=== PATIENT | female | born 1975 | race Caucasian/White ===

== ENCOUNTER 2020-05-20 11:09 | Outpatient (CLI) | payer OTHER, SELFPAY ==
--- NOTE | ~2020-05-20 | XR_ITS ---
EXAMINATION: XR chest 2V 05/20/2020 11:31 INDICATION: Cough PROCEDURE: 2 view chest COMPARISON: No prior studies for comparison. FINDINGS: The lungs are clear. The cardiomediastinal silhouette is within normal limits. There are no pleural effusions. There is no pneumothorax suspected. IMPRESSION: 1: NO ACUTE CARDIOPULMONARY DISEASE. Reviewed, dictated and finalized at location B.
[2020-05-20 11:22] LABS: Basophils Absolute Auto 0.05 K/mm3 (0.00-0.10); Basophils Percent Auto 0.4 % (0.0-1.0); Eosinophils Absolute Auto 0.25 K/mm3 (0.02-0.50); Eosinophils Percent Auto 2.2 % (1.0-6.0); Hematocrit 34.6 % (35.0-49.0); Hemoglobin 11.4 g/dL (12.0-15.0); Immature Granulocyte Absolute 0.05 K/mm3 (0.00-0.00); Immature Granulocyte Percent A 0.4 % (0.0-0.0); Lymphocytes Absolute Auto 2.76 K/mm3 (1.10-4.50); Lymphocytes Percent Auto 24.2 % (18.0-42.0); Mean Corpuscular HGB Conc 32.9 g/dL (32.0-36.0); Mean Corpuscular Hemoglobin 31.1 pg (27.0-31.0); Mean Corpuscular Volume 94.5 fL (78.0-102.0); Mean Platelet Volume 9.4 fl (9.2-11.8); Monocytes Absolute Auto 1.07 K/mm3 (0.10-0.90); Monocytes Percent Auto 9.4 % (2.0-11.0); Neutrophils Absolute Auto 7.2 K/mm3 (1.7-7.2); Neutrophils Percent Auto 63.4 % (50.0-70.0); Platelet Count Result 328 K/mm3 (150-420); Red Blood Count 3.66 M/mm3 (4.20-5.40); Red Cell Distribution Width 12.7 % (11.6-14.4); White Blood Count 11.4 K/mm3 (4.8-10.8)
[2020-05-20 11:24] LABS: Add Urine Microscopic? NO; Appearance Urine Clear (Clear); Bilirubin Urine Negative (Negative); Blood Urine Negative (Negative); Color Urine Yellow (Yellow); Glucose Urine UA Negative (Negative); Ketones Urine Negative (Negative); Leukocyte Esterase Ur Negative (Negative); Nitrate Urine Negative (Negative); Protein Urine Negative (Negative); Urobilinogen Urine 0.2 mg/dL (0.2-1.0)
[2020-05-20 12:48] LABS: Alanine Aminotransferase 27 U/L (14-59); Albumin Level 3.9 g/dL (3.4-5.0); Alkaline Phosphatase 50 U/L (46-116); Anion Gap 9 mmol/L (8-16); Aspartate Amino Transferase 17 U/L (15-37); Bilirubin,Total 0.7 mg/dL (0.00-1.00); Blood Urea Nitrogen 8 mg/dL (7-18); Calcium 8.8 mg/dL (8.5-10.1); Carbon Dioxide 28 mmol/L (21-32); Chloride 103 mmol/L (98-108); Cholesterol 168 mg/dL (0-200); Estimated Glomerular Filt Rate > 60; Glucose 78 mg/dL (70-99); HDL Direct 61 mg/dL (40-60); LDL Cholesterol Calculated 95 mg/dL (<130); Osmolality Calculated 287 mOsm/kg (285-295); Potassium 4.3 mmol/L (3.5-5.1); Sodium 140 mmol/L (136-145); Thyroid Stimulating Hormone 2.31 uIU/mL (0.36-3.74); Total Protein 6.7 g/dL (6.4-8.2); Triglycerides 58 mg/dL (0-150)
== END 2020-05-20 11:10 | disposition home or self-care (01) ==
PROVIDERS: PCP Internal Medicine; Visit Provider Internal Medicine
DX: Z00.00 Encounter for general adult medical examination without abnormal findings (principal); F17.200 Nicotine dependence, unspecified, uncomplicated
CPT/HCPCS: 36415; 71046; 80053; 80061; 81003; 84443; 85025

== ENCOUNTER 2020-07-26 16:30 | Emergency (ER) | payer OTHER, SELFPAY ==
--- NOTE | ~2020-07-26 | CT_ITS ---
EXAMINATION: CT abdomen pelvis wo con DATE: 07/26/2020 18:57 INDICATION: Right flank pain TECHNIQUE: Computed tomography (CT) of the abdomen and pelvis was performed without intravenous contr ast. The dose-length product was 258.14 mGy-cm. Automated exposure control and iterative reconstructi on technique were employed. COMPARISON: None. FINDINGS: Lung bases are unremarkable. Heart size normal. No significant pleural or pericardial effus ion. There is an 11 mm hypodense lesion of the right hepatic lobe, most likely benign cysts. No significan t vascular abnormality. There is right perinephric edema with mild hydronephrosis. The ureter is not well visualized distally . Cannot exclude a ureteral stone. There are bilateral pelvic calcifications. Consider correlation wi th CT urogram. The spleen, pancreas, adrenal glands and left kidney are unremarkable. Nonobstructive bowel gas patte rn. No free air or free fluid. IMPRESSION: 1. Moderate right perinephric edema with mild hydronephrosis. Consider pyelonephritis and sequela of distal ureteral stone, although the mid and distal aspect of the ureter are not well visualized. Cons ider correlation with CT urogram. Reviewed, dictated and finalized at location A. FILLING ROOM SWEEPER IMPRESSION: 1. Moderate right perinephric edema with mild hydronephrosis. Consider pyelonep hritis and sequela of distal ureteral stone, although the mid and distal aspect of the ureter are not well visualized. Consider correlation with CT urogram.
[2020-07-26 16:45] VITALS: BP 111/81; PULSE 102; RESP 17; TEMP 36; O2SAT 97
[2020-07-26] MEDS: ONDANSETRON HCL ODT 4 MG TABLET PO (18:20)
[2020-07-26] MEDS: KETOROLAC (*BKC) 60 MG/2 ML VIAL IM (18:22)
[2020-07-26 18:48] LABS: Add Urine Microscopic? YES; Appearance Urine Cloudy (Clear); Bilirubin Urine Negative (Negative); Blood Urine 2+ (Negative); Color Urine Amber (Yellow); Glucose Urine UA Negative (Negative); Hematocrit 39.1 % (35.0-49.0); Ketones Urine Negative (Negative); Leukocyte Esterase Ur 1+ (Negative); Mean Corpuscular HGB Conc 33.2 g/dL (32.0-36.0); Mean Corpuscular Hemoglobin 30.8 pg (27.0-31.0); Mean Corpuscular Volume 92.7 fL (78.0-102.0); Mean Platelet Volume 9.7 fl (9.2-11.8); Nitrate Urine Positive (Negative); Platelet Count Result 302 K/mm3 (150-420); Protein Urine 1+ (Negative); Red Blood Count 4.22 M/mm3 (4.20-5.40); Red Cell Distribution Width 11.8 % (11.6-14.4); Specific Grav Ur >= 1.030 (1.010-1.020); Urobilinogen Urine 0.2 mg/dL (0.2-1.0); pH Urine 5.5 (5.0-8.0)
[2020-07-26 18:49] LABS: White Blood Count 20.1 K/mm3 (4.8-10.8)
[2020-07-26 18:58] LABS: Bacteria Urine 4+ /hpf; Squamous Epithelial Cell Urine Many /hpf (Few); WBC Urine >75 /hpf (0-3)
[2020-07-26 19:03] LABS: Alanine Aminotransferase 16 U/L (14-59); Albumin Level 3.7 g/dL (3.4-5.0); Alkaline Phosphatase 73 U/L (46-116); Anion Gap 7 mmol/L (8-16); Aspartate Amino Transferase 12 U/L (15-37); Bilirubin,Total 0.9 mg/dL (0.00-1.00); Blood Urea Nitrogen 12 mg/dL (7-18); Calcium 9.1 mg/dL (8.5-10.1); Carbon Dioxide 26 mmol/L (21-32); Chloride 96 mmol/L (98-108); Estimated Glomerular Filt Rate > 60; Glucose 112 mg/dL (70-99); Osmolality Calculated 268 mOsm/kg (285-295); Potassium 3.7 mmol/L (3.5-5.1); Sodium 129 mmol/L (136-145); Total Protein 8.2 g/dL (6.4-8.2)
[2020-07-26 19:08] LABS: Lactic Acid Reflex 0.8 mmol/L (0.4-2.0)
[2020-07-26 19:27] LABS: Band Neutrophils Percent 0 % (0-6); Eosinophils Percent Manual 1 % (1-6); Lymphocytes Percent Manual 6 % (18-44); Metamyelocytes Percent 2 %; Monocytes Percent Manual 8 % (3-9); Neutrophils Absolute Manual 16.68 K/mm3 (1.7-7.2); Neutrophils Percent Manual 83 % (46-73); Platelet Estimate Adequate (Adequate); Total Cells Counted 100
[2020-07-26] MEDS: cefTRIAXone 1 GM VIAL IM (19:44)
--- NOTE | 2020-07-26 20:14 | ED.GENADULT ---
HPI - General Adult General Source: patient and family Mode of arrival: ambulatory Limitations: no limitations History of Present Illness HPI narrative: Patient comes in with right flank pain that started yesterday, is moderately severe, ongoing, not relieved by measures taken at home, and not known to be related to anything in particular. Severity: severe Pain Consistency: colicky Relieving factors: none Exacerbating factors: none Associated symptoms: denies other symptoms Treatments prior to arrival: NSAID Related Data Home Medications Medication Instructions Recorded Confirmed No Home Medications 07/26/20 07/26/20 Allergies Allergy/AdvReac Type Severity Reaction Status Date / Time No Known Allergies Allergy Unknown Unverified 10/18/09 09:04 Review of Systems Constitutional: Constitutional: Reports no additional constitutional complaints Eyes: Eyes: Reports no additional eye complaints ENT: Reports system reviewed and no additional complaints, except as documented Cardiovascular: Cardiovascular: Reports no additional cardiovascular complaints Respiratory: Respiratory: Reports no additional respiratory complaints Gastrointestinal: Comments: episodes of nausea Genitourinary: Genitourinary: Reports no additional female genitourinary complaints Musculoskeletal: Musculoskeletal: Reports no additional musculoskeletal complaints Integumentary/Breasts: Skin/Breast: Reports system reviewed and no additional complaints, except as docu Neurologic: Reports system reviewed and no additional complaints, except as documented Psychiatric: Psychiatric: Reports no additional psychiatric complaints Endocrine: Endocrine: Reports no additional endocrine complaints Hematologic/Lymphatic: Hematologic/Lymphatic: Reports no additional hematologic/lymphatic complaints Allergic/Immunologic: Allergic/Immunologic: Reports no additional allergic/immunologic complaints [facility] Past Medical History Medical History Nausea & vomiting Surgical History Surgical History No significant past surgical history Family History Family History Father Hyperlipidemia Social History Social History (Updated 07/27/20 @ 05:38 by Donte Ponce MD) Smoking status: Current every day smoker Tobacco type: cigarettes Exam Const: General: ill appearing Other: she is nauseated and attempting to vomit HENMT: Head: normal to inspection Ears: external ears normal General nose exam: Normal nares present Eyes: Conjunctivae: conjunctivae normal Neck: Neck: normal visual inspection and no lymphadenopathy Chest: Chest palpation & inspection: normal inspection of the chest Resp: Effort & Inspection: normal respiratory effort Auscultation: clear to auscultation bilaterally Cardio: Rate: regular rate Rhythm: regular rhythm GI: GI Palp: Yes Soft to palpation Auscultation: normal bowel sounds Other: nontender : General: Yes CVA tenderness (on right) Skin: General skin exam: normal color Neuro: General: patient oriented x3 and moves all extremities Extrem: General: normal to inspection Psych: Appearance: grossly normal Mental Status: mental status grossly normal Thought content: Yes Normal thought content present Course Course Emergency Course: CT of abdomen and labs were reviewed due to her persistent emesis, and some mild abdominal discomfort. She was medicated with zofran, which helped. Her son came in to get her. I reviewed with her she has a UTI, and a kidney stone. She was given ceftriaxone and levaquin. I stressed the importance to return if she feels worse at home. A script for an ultrasound as a outpatient was written. She was instructed to follow up with her family doctor to review urine culture, and a urologist because she will need help passing the stone.
[2020-07-26] MEDS: TAMSULOSIN HCL 0.4 MG CAPSULE PO (20:17)
--- NOTE | 2020-07-26 20:22 | PHAR ---
LEVAQUIN 500 MG GIVEN PO - UNABLE TO CHART IN MAR
[2020-07-26 20:45] VITALS: BP 101/69
== END 2020-07-26 20:47 | disposition home or self-care (01) ==
PROVIDERS: Emergency Provider Emergency Medicine; PCP Internal Medicine
DX: N39.0 Urinary tract infection, site not specified (principal); N20.0 Calculus of kidney
CPT/HCPCS: 36415; 74176; 80053; 81001; 83605; 85025; 87077; 87086; 87088; 87186; 96372; 99283; 99284; A9270; J0696; J1885

== ENCOUNTER 2020-07-30 10:25 | Outpatient (CLI) | payer OTHER, SELFPAY | END 2020-07-30 10:26 | disposition home or self-care (01) | LOC: CHSIMG 10:26 | PROVIDERS: PCP Internal Medicine; Visit Provider Emergency Medicine | DX: Z53.8 Procedure and treatment not carried out for other reasons (principal) | CPT/HCPCS: 99199 ==

== ENCOUNTER 2020-08-07 13:26 | Outpatient (CLI) | payer OTHER, SELFPAY ==
--- NOTE | ~2020-08-07 | CT_ITS ---
EXAMINATION: CT abdomen pelvis wo con DATE: 08/07/2020 13:52 INDICATION: Right flank pain, hydronephrosis follow-up TECHNIQUE: Computed tomography (CT) of the abdomen and pelvis was performed without intravenous contr ast. Automated exposure control and iterative reconstruction technique were employed. Exam dose: 174 .31 mGy-cm total exam DLP. COMPARISON: 07/26/[address] abdomen pelvis FINDINGS: The lung bases are clear. Normal heart size. No pericardial or pleural effusion. 11 mm hypoattenuating lesion of the right hepatic lobe, likely a cyst. The liver, gallbladder, bile d ucts, spleen, pancreas and pancreatic duct as well as adrenal glands are unremarkable. No renal mass lesion or urinary tract calculus or hydroureteronephrosis is evident. Interval resoluti on of mild right perinephric fluid since 07/26/2020. The urinary bladder is relatively evacuated. Uterus and adnexal areas are unremarkable. Normal caliber of the abdominal aorta. No intraperitoneal or retroperitoneal or pelvic mass lesion or adenopathy or ascites. Normal appendix. No bowel obstruction, bowel wall thickening, pneumatosis or intraperitoneal free air . Minimal retrolisthesis at L3-4. No suspicious osteolytic or osteoblastic lesions. IMPRESSION: Resolution of mild perinephric fluid since 07/26/2020 No urinary tract calculus or hydroureteronephrosis Probable 11 mm hepatic cyst Reviewed, dictated and finalized at Location A. Reviewed, dictated and finalized at location B. ET RISK ANALYST
[2020-08-07 13:44] LABS: Basophils Absolute Auto 0.03 K/mm3 (0.00-0.10); Basophils Percent Auto 0.3 % (0.0-1.0); Eosinophils Absolute Auto 0.21 K/mm3 (0.02-0.50); Eosinophils Percent Auto 1.8 % (1.0-6.0); Hematocrit 36.7 % (35.0-49.0); Hemoglobin 12.1 g/dL (12.0-15.0); Immature Granulocyte Absolute 0.09 K/mm3 (0.00-0.00); Immature Granulocyte Percent A 0.8 % (0.0-0.0); Lymphocytes Absolute Auto 1.58 K/mm3 (1.10-4.50); Lymphocytes Percent Auto 13.5 % (18.0-42.0); Mean Corpuscular Hemoglobin 30.5 pg (27.0-31.0); Mean Corpuscular Volume 92.4 fL (78.0-102.0); Mean Platelet Volume 8.9 fl (9.2-11.8); Monocytes Absolute Auto 0.85 K/mm3 (0.10-0.90); Monocytes Percent Auto 7.3 % (2.0-11.0); Neutrophils Absolute Auto 8.9 K/mm3 (1.7-7.2); Neutrophils Percent Auto 76.3 % (50.0-70.0); Platelet Count Result 420 K/mm3 (150-420); Red Blood Count 3.97 M/mm3 (4.20-5.40); White Blood Count 11.7 K/mm3 (4.8-10.8)
[2020-08-07 14:04] LABS: Add Urine Microscopic? NO; Appearance Urine Clear (Clear); Bilirubin Urine Negative (Negative); Blood Urine Negative (Negative); Color Urine Yellow (Yellow); Glucose Urine UA Negative (Negative); Ketones Urine Negative (Negative); Leukocyte Esterase Ur Negative (Negative); Nitrate Urine Negative (Negative); Protein Urine Negative (Negative); Specific Grav Ur >= 1.030 (1.010-1.020); Urobilinogen Urine 0.2 mg/dL (0.2-1.0)
[2020-08-07 14:27] LABS: Alanine Aminotransferase 17 U/L (14-59); Albumin Level 3.8 g/dL (3.4-5.0); Alkaline Phosphatase 61 U/L (46-116); Anion Gap 7 mmol/L (8-16); Aspartate Amino Transferase < 10 U/L (15-37); Bilirubin,Total 0.2 mg/dL (0.00-1.00); Blood Urea Nitrogen 11 mg/dL (7-18); Calcium 9.4 mg/dL (8.5-10.1); Carbon Dioxide 29 mmol/L (21-32); Chloride 101 mmol/L (98-108); Estimated Glomerular Filt Rate > 60; Glucose 85 mg/dL (70-99); Osmolality Calculated 282 mOsm/kg (285-295); Potassium 4.3 mmol/L (3.5-5.1); Sodium 137 mmol/L (136-145); Total Protein 7.1 g/dL (6.4-8.2)
== END 2020-08-07 13:27 | disposition home or self-care (01) ==
LOC: CHSLAB 13:30
PROVIDERS: PCP Internal Medicine; Visit Provider Internal Medicine
DX: N13.30 Unspecified hydronephrosis (principal); N12 Tubulo-interstitial nephritis, not specified as acute or chronic
CPT/HCPCS: 36415; 74176; 80053; 81003; 85025; 87086

== ENCOUNTER 2021-04-11 11:51 | Outpatient (CLI) | payer OTHER, SELFPAY ==
--- NOTE | ~2021-04-11 | XR_ITS ---
EXAMINATION: XR lumbar spine 2-3V DATE: 04/11/2021 12:18 INDICATION: Low back pain TECHNIQUE: Anteroposterior and lateral views of the lumbar spine, and cone-down lateral view of the l umbosacral junction were obtained. COMPARISON: CT, 08/07/2020 FINDINGS: There is no fracture. There are 2 mm of unchanged retrolisthesis of L3 on L4. The vertebral body heights are maintained. There is mild loss of intervertebral disc space height throughout the l umbar spine. Small degenerative osteophytes project from the anterior endplates of multiple vertebral bodies. IMPRESSION: 1. Mild lumbar spondylosis without acute findings or significant interval change. Reviewed, dictated and finalized at location B. IMPRESSION: 1. Mild lumbar spondylosis without acute findings or significant interval maya lorie
== END 2021-04-11 11:52 | disposition home or self-care (01) ==
LOC: CHSIMG 11:53
PROVIDERS: PCP Internal Medicine; Visit Provider Internal Medicine
DX: M54.9 Dorsalgia, unspecified (principal); M54.17 Radiculopathy, lumbosacral region
CPT/HCPCS: 72100

== ENCOUNTER 2021-04-21 15:50 | Outpatient (RCR) | payer OTHER, SELFPAY ==
--- NOTE | 2021-04-28 12:53 | PTOPEVAL ---
Thank you for referring Erika Zhou to [facility].? The patient is scheduled to be seen for therapy? ____x/week for ___ weeks. Please review, sign, date and return this plan of care HANNAH. I agree with and certify that the following plan of care is medically necessary. Referring Physician Date Admitting Provider: Attending Provider: Ra Ruggiero MD Referring Provider: *PT Outpatient Evaluation Start: 04/21/21 16:13 Freq: Status: Active Protocol: Document 04/21/21 16:14 [facility] (Rec: 04/21/21 16:57 [facility] [id number]) Therapy Assessment Status Assessment Status Assessment Status Evaluation Evaluation Information Problem Diagnosis bilateral hip/lower back pain Onset 04/02/21 Additional Evaluation Detail oswestry = 50% functionally declined Subjective Information patient reports she has been Query Text:As Reported By Patient/ having pain in the lower back Family for about 2-3 weeks. she reports she was doing some heavy and repetitive lifting and began having pain across the lower back. she reports she she has pain down both her legs into calves. she reports she has had an xray but no MRI. patient reports she has increased symptoms/pain with climbing up and down steps. she reports also pain with getting up and down from a chair. Prior Level of Function Comments Additional Prior Level of Function patient reports prior to Comments injury, no limiting back pain. she reports soreness/aches from time to time, but nothing severe of debillitating. Pain Assessment Timing of Pain Assessment Timing of Pain Assessment Assessment Pain Scale Pain Scale Used Numeric (1 - 10) Self Report Pain Assessment Lower Back Reported Pain Level 3 Pain Frequency Acute,Continuous Pain Score Pain Score 3: Self Report Interventions Used Interventions Used By Clinicians Activity or ADL's,Education, Exercise Cervical and Lumbar ROM Lumbar ROM Lumbar Flexion Active Knee Query Text:Hands to: Lumbar Extension (0-40) 0 Query Text:Active in Degrees Lumbar Lateral Flexion Right (0-40) 20 Query Text:Active in Degrees Lumbar Lateral Flexion Left (0-40) 20
--- NOTE | 2021-06-19 15:50 | PTOPEVAL ---
Thank you for referring Erika Zhou to [facility].? The patient is scheduled to be seen for therapy? ____x/week for ___ weeks. Please review, sign, date and return this plan of care HANNAH. I agree with and certify that the following plan of care is medically necessary. Referring Physician Date Admitting Provider: Attending Provider: Ra Ruggiero MD Referring Provider: *PT Outpatient Evaluation Start: 04/21/21 16:13 Freq: Status: Active Protocol: Document 06/19/21 15:00 [facility] (Rec: 06/19/21 15:50 [facility] [id number]) Therapy Assessment Status Assessment Status Assessment Status Discharge Evaluation Information Problem Diagnosis bilateral hip/lower back pain Onset 04/02/21 Additional Evaluation Detail oswestry = 30% Subjective Information patient reports she has been Query Text:As Reported By Patient/ feeling really well lately. Family she reports a great decrease in pain and improved strength. she reports no issues with steps lately and no issues getting up and down from a chair. Pain Assessment Timing of Pain Assessment Timing of Pain Assessment Assessment Pain Scale Pain Scale Used Numeric (1 - 10) Self Report Pain Assessment Lower Back Reported Pain Level 1 Greatest Pain Intensity 4 Pain Score Pain Score 1: Self Report Interventions Used Interventions Used By Clinicians Activity or ADL's,Education, Exercise Cervical and Lumbar Muscle Testing Lumbar Strength Upper Abdominal Strength 4-Good- Lower Abdominal Strength 3+Fair+ Lower Extremity Muscle Strength Testing Hip Strength Bilateral Hip Flexion Strength 5 Normal Hip Abduction Strength 5 Normal Knee Strength Bilateral Knee Flexion Strength 5 Normal Knee Extension Strength 5 Normal Ankle Strength Bilateral Ankle Dorsiflexion Strength 5 Normal Ankle Plantarflexion Strength 4+ Good + Muscle Length Testing Muscle Length Testing Left Hamstring Length 5 Query Text:(90 - 90 Position) Right Hamstring Length 5 Query Text:(90 - 90 Position) Gait Assessment Gait Pattern Assessment Gait Pattern No Deviations/Normal General Exercise General Exercises Exercise Description -PPT with alt hip flex x 30 ea Query Text:Record Sets, Reps, -hal abdominals diagonal Resistance, and Position pattern with ball 5 sec x 20 ea -supine hal abdominals with star ball x 20
== END 2021-06-19 15:55 | disposition home or self-care (01) ==
LOC: CHSPT 15:50
PROVIDERS: PCP Internal Medicine; Visit Provider Internal Medicine
DX: M47.816 Spondylosis without myelopathy or radiculopathy, lumbar region (principal)
CPT/HCPCS: 97014; 97110; 97161; G0283

== ENCOUNTER 2021-06-30 11:36 | Emergency (ER) | payer OTHER, SELFPAY ==
[2021-06-30 11:59] VITALS: BP 136/76; RESP 16; TEMP 36.5; O2SAT 98
--- NOTE | 2021-06-30 12:14 | ED.DENTAL ---
HPI - Dental/Oral General Chief complaint: Neck Pain/Injury Stated complaint: swollen neck & jaw Source: patient and RN notes reviewed Mode of arrival: ambulatory Limitations: no limitations History of Present Illness Onset (ago): day(s) (1) Duration: constant Severity: mild Relieving factors: nothing Exacerbating factors: chewing Associated symptoms: gum swelling Treatment prior to arrival: none Related Data Allergies Allergy/AdvReac Type Severity Reaction Status Date / Time No Known Allergies Allergy Unknown Unverified 10/18/09 09:04 Review of Systems Review of Systems: All systems reviewed & are unremarkable except as noted in HPI and below PMFSH Past Medical History Medical History (Updated 06/30/21 @ 12:18 by Donte Sexton MD) Nausea & vomiting Surgical History Surgical History (Updated 06/30/21 @ 12:18 by Donte Sexton MD) H/O wrist surgery History of bilateral tubal ligation No significant past surgical history Family History Family History Father Hyperlipidemia Social History Social History (Updated 06/30/21 @ 12:19 by Donte Sexton MD) Smoking packs per day: 1 Smoking cigarettes per day: 20.0 Smoking status: Current every day smoker Tobacco type: cigarettes Alcohol intake: never Substance use: current Substance use type: marijuana Exam Const: General: healthy appearing, no acute distress and alert Nutritional Appearance: well nourished Orientation/consciousness: patient oriented x3 Other: female staff in room during examination. HENMT: Head: normal to inspection Face and sinus: other (Swelling along left mid mandible) Mouth: Yes Normal oral and palatal mucosa present Teeth and gingiva: edentulous and other ( Swelling along the left lower outer gum line) Throat: posterior oropharynx normal Eyes: Conjunctivae: conjunctivae normal Pupils: Equal, round and reactive pupils present EOM: EOMs intact bilaterally Neck: Neck: normal visual inspection and lymphadenopathy left submandibular Resp: Effort & Inspection: normal respiratory effort Auscultation: clear to auscultation bilaterally Cardio: Rate: regular rate Rhythm: regular rhythm GI: GI Palp: Yes Soft to palpation and No Tenderness to palpation present (GI) Auscultation: normal bowel sounds Back/Spine/Pelvis: Cervical Spine: cervical ROM normal Thoracic/Lumbar Spine: thoraco-lumbar ROM normal Skin: General skin exam: normal color Rashes: no rashes Neuro: General: patient oriented x3, moves all extremities, no meningeal signs and no focal motor deficits Speech: normal speech Gait exam (Neuro): Normal gait present Extrem: General: normal to inspection and no clubbing, cyanosis or edema Psych: Appearance: grossly normal and well kempt Mental Status: mental status grossly normal Affect: normal affect Attitude: cooperative Thought content: Yes Normal thought content present Discharge Plan Discharge Clinical Impression: Adenitis, acute Patient Disposition: Home, Self-Care Condition: Stable Instructions: Adenitis (ED) Additional Instructions: Warm compresses 3-4 times per day. Tylenol and or Motrin as needed for pain. Prescriptions: New amoxicillin 500 mg tablet 500 mg PO Q8H 10 Days Qty: 30 RF: 0 No Action tamsulosin [Flomax] 0.4 mg capsule 0.4 mg PO BID Qty: 30 RF: 0 ketorolac 10 mg tablet 10 mg PO QID PRN (Reason: pain) 5 Days Qty: 20 RF: 0 hydrocodone-acetaminophen 7.5-325 mg tablet 1 tablet PO Q4H PRN (Reason: pain) Qty: 16 RF: 0 levofloxacin 500 mg tablet 500 mg PO DAILY Qty: 10 RF: 0 Follow-up/Referrals: Ra Ruggiero MD [Primary Care Provider] - Time of Disposition: 12:17
== END 2021-06-30 12:22 | disposition home or self-care (01) ==
PROVIDERS: Emergency Provider Emergency Medicine; PCP Internal Medicine
DX: L04.9 Acute lymphadenitis, unspecified (principal)
CPT/HCPCS: 99283

== ENCOUNTER 2021-09-23 08:48 | Outpatient (CLI) | payer OTHER, SELFPAY ==
--- NOTE | ~2021-09-23 | MR_ITS ---
EXAMINATION: MR lumbar spine wo con DATE: 09/23/2021 09:27 INDICATION: Low back pain and radiculopathy with bilateral leg numbness and tingling TECHNIQUE: Magnetic resonance imaging (MRI) of the lumbar spine was performed without intravenous con trast. Sequences included sagittal T2-weighted FSE, sagittal T2-weighted FS FSE, sagittal T1-weighted FSE, and axial T2-weighted FSE. COMPARISON: Lumbar spine radiographs dated 04/11/2021 FINDINGS: Mild straightening of the normal lumbar lordosis and 9 degrees levocurvature between L3 and L5. 2 mm retrolisthesis L2 on L3 and L3 on L4. Vertebral body heights are normal. Mild fibrovascular degenerat fiona endplate changes at the anterior margins of multiple endplates in the mid to lower lumbar spine. Marrow signal is otherwise normal. Mild disc height loss on the right at T11-T12, diffuse mild disc h eight loss with annular fissure at L2-L3 and moderate right-sided disc height loss with annular fissu re at L3-L4 and L4-L5. The conus medullaris terminates at L2. There is normal signal in the caudal sp inal cord. Paravertebral soft tissues are unremarkable. The following disc levels are specifically di scussed: T12-L1: Disc is minimally bulging. There is mild bilateral facet joint osteoarthritis. There is no ne ural foraminal stenosis. There is no central canal stenosis. L1-L2: Disc is minimally bulging. There is mild bilateral facet joint osteoarthritis. There is no jeramy ral foraminal stenosis. There is no central canal stenosis. L2-L3: Disc is bulging with annular fissure. There is mild bilateral facet joint osteoarthritis. Ther e is mild bilateral neural foraminal stenosis. There is mild central canal stenosis. L3-L4: Disc is bulging with annular fissure. There is hypertrophy of the ligamentum flavum. There is severe bilateral facet joint osteoarthritis. There is moderate right and mild left neural foraminal s tenosis. There is moderate to severe central canal stenosis. L4-L5: Disc is bulging with annular fissure. There is hypertrophy of the ligamentum flavum. There is severe bilateral facet joint osteoarthritis. There is moderate right and mild to moderate left neural foraminal stenosis. There is severe central canal stenosis. L5-S1: Disc is mildly bulging. There is moderate bilateral facet joint osteoarthritis. There is mild right and moderate left neural foraminal stenosis. There is no central canal stenosis. IMPRESSION: 1. Moderate lumbar spondylosis. Posterior superior central canal stenosis at L4-L5 and moderate to se jackson central canal stenosis at L3-L4. Reviewed, dictated and finalized at location A. SQUAD COMMANDER IMPRESSION: 1. Moderate lumbar spondylosis. Posterior superior central canal stenosis at L4 -L5 and moderate to severe central canal stenosis at L3-L4.
== END 2021-09-23 08:49 | disposition home or self-care (01) ==
LOC: CHSIMG 08:50
PROVIDERS: PCP Internal Medicine; Visit Provider Internal Medicine
DX: M54.50 Low back pain, unspecified (principal); M54.10 Radiculopathy, site unspecified
CPT/HCPCS: 72148

== ENCOUNTER 2023-08-17 15:00 | Outpatient (CLI) | payer OTHER, SELFPAY ==
[2023-08-17 15:27] LABS: Basophils Absolute Auto 0.03 K/mm3 (0.00-0.10); Basophils Percent Auto 0.4 % (0.0-1.0); Eosinophils Absolute Auto 0.14 K/mm3 (0.02-0.50); Eosinophils Percent Auto 2.1 % (1.0-6.0); Hematocrit 35.8 % (35.0-49.0); Hemoglobin 11.7 g/dL (12.0-15.0); Immature Granulocyte Absolute 0.02 K/mm3 (0.00-0.00); Immature Granulocyte Percent A 0.3 % (0.0-0.0); Lymphocytes Absolute Auto 2.35 K/mm3 (1.10-4.50); Mean Corpuscular HGB Conc 32.7 g/dL (32.0-36.0); Mean Corpuscular Hemoglobin 28.5 pg (27.0-31.0); Mean Corpuscular Volume 87.3 fL (78.0-102.0); Mean Platelet Volume 8.9 fl (9.2-11.8); Monocytes Absolute Auto 0.51 K/mm3 (0.10-0.90); Monocytes Percent Auto 7.6 % (2.0-11.0); Neutrophils Absolute Auto 3.7 K/mm3 (1.7-7.2); Neutrophils Percent Auto 54.6 % (50.0-70.0); Platelet Count Result 299 K/mm3 (150-420); Red Cell Distribution Width 13.4 % (11.6-14.4); White Blood Count 6.7 K/mm3 (4.8-10.8)
[2023-08-17 16:45] LABS: Alanine Aminotransferase 20 U/L (14-59); Alkaline Phosphatase 74 U/L (46-116); Anion Gap 12 mmol/L (8-16); Aspartate Amino Transferase 14 U/L (15-37); Bilirubin,Total 0.5 mg/dL (0.00-1.00); Blood Urea Nitrogen 11 mg/dL (7-18); Calcium 8.4 mg/dL (8.5-10.1); Carbon Dioxide 25 mmol/L (21-32); Chloride 100 mmol/L (98-108); Estimated Glomerular Filt Rate > 60; Glucose 78 mg/dL (70-99); Osmolality Calculated 282 mOsm/kg (285-295); Potassium 3.8 mmol/L (3.5-5.1); Sodium 137 mmol/L (136-145); Thyroid Stimulating Hormone 2.78 uIU/mL (0.36-3.74); Total Protein 7.4 g/dL (6.4-8.2)
[2023-08-17 16:55] LABS: CRP < 0.5 mg/dL (0.0-0.9)
[2023-08-17 18:30] LABS: Appearance Urine Clear (Clear); Bilirubin Urine Negative (Negative); Blood Urine 3+ (Negative); Color Urine Light Yellow (Yellow); Glucose Urine UA Negative (Negative); Ketones Urine Negative (Negative); Leukocyte Esterase Ur 1+ (Negative); Nitrate Urine Negative (Negative); Protein Urine Negative (Negative); Specific Grav Ur >= 1.030 (1.010-1.020); Urobilinogen Urine 0.2 mg/dL (0.2-1.0); pH Urine 5.5 (5.0-8.0)
[2023-08-17 18:40] LABS: Add Urine Microscopic? YES; Bacteria Urine 1+ /hpf; RBC Urine 21-50 /hpf (0-2); Squamous Epithelial Cell Urine Moderate /hpf (Few); WBC Urine 0-3 /hpf (0-3)
[2023-08-17 18:56] LABS: Amphetamine Screen Urine Negative (Negative); Barbiturate Screen Urine Negative (Negative); Benzodiazepines Screen Urine Negative (Negative); Cannabinoid Screen Urine Negative (Negative); Cocaine Screen Urine Negative (Negative); Methadone Screen Urine Negative (Negative); Opiate Screen Urine Negative (Negative); Phencyclidine Screen Urine Negative (Negative)
== END 2023-08-17 15:01 | disposition home or self-care (01) ==
LOC: CHSLAB 15:04
PROVIDERS: PCP Internal Medicine; Visit Provider Internal Medicine
DX: G95.89 Other specified diseases of spinal cord (principal)
CPT/HCPCS: 36415; 80053; 80307; 81001; 84443; 85025; 86140

== ENCOUNTER 2023-08-25 14:33 | Outpatient (RCR) | payer OTHER, SELFPAY ==
--- NOTE | 2023-08-25 15:40 | OPREHPOC ---
Outpatient Therapy Plan of Care This is a Multidisciplinary Plan of Care that may contain components documented by all disciplines (PT, OT, and ST.) PT Problem 1 PT Problem #1 Knowledge Deficit PT Goal 1 Goal Patient to demonstrate independence with HEP Target Visit 6 PT Problem 2 PT Problem #2 Pain PT Goal 1 Goal Patient to report highest pain at 4/10 in order to improve ability to ambulate house hold distances Target Visit 12 PT Problem 3 PT Problem #3 Impaired Strength PT Goal 1 Goal Patient to demosntrate 4+/5R ankle DF strength to decrease toe drag during swing phase of gait cycle and decrease fall risk Target Visit 12 PT Problem 4 PT Problem #4 Impaired Functional Mobil PT Goal 1 Goal 1. patient to ambulate 600' during 6 min walk test with no occurance of toe drag 2. patient to improve Tinetti balance score by 9 points to decrease fall risk within the home 3. Patient to improve 5TSTS to <15 seconds to decrease fall risk 4. Patient to report ability to get out of bed with no assistance Target Visit 12
--- NOTE | 2023-08-25 15:41 | PTOPEVAL1 ---
Assessment and note entered by Ibis Joyner DPT Evaluation Information Assessment Status Evaluation Diagnosis low back pain, L LE pain, weakness, decreased balance Onset 08/17/23 Subjective Information Patient reports in December of 2022 she was working at her house and a piece of metal fell on her head. She reports she progressively noticed a decrease in senstaion, strength and balance with frequent falling. While in the hospital following injury she was found to have a tick borne illness that progressed all of her symptoms. She reports she had a history of cervical pain and ended up having a cervical fusion from C2-T2. After her fusion she participated in inpatient rehab with good results. She has noticed over the last 3 weeks she has noticed increased weakness and decreased balance. She is now walking with a quad cane. She had difficulty walking, completing house hold tasks and getting into and out of bed. Patient was a working prior to injury. She is also having diffiuclty with use of R UE and hand and would like to participate in OP OT. Reported Pain Level Pain Score 5,7: Self Report Assessment PT Clinical Summary Ms. Liu is a 48 year old female who presents to PT with decreased balance and weakness following cervical fusion. She demonstrates decreased R ankle strength, impaired gait mechanics and poor balance limiting her ability to ambulate house hold and community distances, get in and out of bed and complete house hold tasks. She would benefit from skilled PT to address impairments and return to PLOF. Plan of Care Interventions Electrical Stimulation,Gait Training,Hot Pack/Cold Pack,Manual Therapy,Neuro Re-education,Patient/ Caregiver Educati,Therapeutic Activities, Therapeutic Exercise PT Services Indicated Yes Treatment Frequency and 3x weekly for 12 visits Duration These treatments will address the objective and functional deficits as defined above. The patient will be advanced safely and appropriately in order for the patient to progress towards his/her prior level of function. Additional exercises will be introduced and as well as a comprehensive home exercise program upon discharge, if needed, ?to ensure carryover of functional gains achieved in the clinic. This treatment plan has been reviewed and agreement upon by the patient.
--- NOTE | 2023-08-31 16:18 | OTOPEVAL1 ---
Assessment and note entered by Yelitza Naqvi, OT Evaluation Information Assessment Status Evaluation Diagnosis Upper extremity weakness Onset December 2022 Subjective Information The patient reports that she has 9/10 pain in B hands at all times and it will sometimes get worse with sharp shooting pains into hands. The patient reports that she is unable to shave her armpits, wash her hair, use of R arm much at all during daily tasks, and put on deodorant. She states she tries to perform coordination and strengthening exercises at home and she has a good support system through her mom and dad who takes her to therapy. She is unable to put her hair in a ponytail and wants to return to living on her own. The patient reports she has a neck fusion from C2 to T1. The patient reports severe numbness and tingling in B hands. Reported Pain Level Pain Score 6,6,9: Self Report Pain Score 6,6: Self Report Pain Score 7,5: Self Report Assessment OT Clinical Summary The patient is a 48 year old female who was referred to outpatient OT due to R sided weakness. The patient presents with spinal surgery following a head injury where she received surgery in June of 2023. The patient previously was independent with all ADLs, IADLs, and demonstrated WNL UE AROM and strength. The patient demonstrates significantly impaired fine motor coordination, track oiler/pinch strength, moderately impaired UE weakness leading to requiring minimal to maximal assistance from family for ADLs. The patient requires skilled OT to address these deficits and return to living independently and increasing the function of B UE in order to maintain healthy lifestyle. Plan of Care Interventions Therapeutic Exercise,Manual Therapy,Neuro Re- education,Therapeutic Activities,Hot Pack/Cold Pack,Cognitive Function,Electrical Stimulation, Sensory Integrative Techn,Self-Care/Home Management,Prosthetic Training,Check Out for Orthotic/Pr,Ultrasound OT Services Indicated Yes Treatment Frequency and 3x/week for 10 visits. Duration These treatments will address the objective and functional deficits as defined above. The patient will be advanced safely and appropriately in order for the patient to progress towards his/her prior level of function. Additional exercises will be introduced and as well as a comprehensive home exercise program upon discharge, if needed, ?to ensure carryover of functional gains achieved in the clinic. This treatment plan has been reviewed and agreement upon by the patient.
--- NOTE | 2023-09-16 17:18 | OPREHPOC ---
Outpatient Therapy Plan of Care This is a Multidisciplinary Plan of Care that may contain components documented by all disciplines (PT, OT, and ST.) PT Problem 1 PT Problem #1 Knowledge Deficit PT Goal 1 Goal Patient to demonstrate independence with HEP Target Visit 6 Progress Met PT Problem 2 PT Problem #2 Pain PT Goal 1 Goal Patient to report highest pain at 4/10 in order to improve ability to ambulate house hold distances Target Visit 12 Progress Not Met PT Problem 3 PT Problem #3 Impaired Strength PT Goal 1 Goal Patient to demosntrate 4+/5R ankle DF strength to decrease toe drag during swing phase of gait cycle and decrease fall risk Target Visit 12 Progress Not Met PT Problem 4 PT Problem #4 Impaired Functional Mobil PT Goal 1 Goal 1. patient to ambulate 600' during 6 min walk test with no occurance of toe drag 2. patient to improve Tinetti balance score by 9 points to decrease fall risk within the home 3. Patient to improve 5TSTS to <15 seconds to decrease fall risk 4. Patient to report ability to get out of bed with no assistance Target Visit 12 Progress Not Met OT Problem 1 OT Problem #1 Knowledge Deficit OT Goal 1 Goal The patient will demonstrate 100% knowledge and return demonstration of UE HEP in order to maintain progress at home. Target Visit 10 OT Problem 2 OT Problem #2 Impaired Coordination OT Goal 1 Goal The patient will demonstrate increased fine motor coordination performing 9-hole peg test in <2 minutes with B hands to improve ability to perform grooming tasks. Target Visit 10 OT Problem 3 OT Problem #3 Impaired Strength OT Goal 1 Goal The patient will demonstrate increased UE strength with 3/5 muscle strength to R elbow and 4+/5 strength to B shoulders, wrists and L elbow in order to perform bathing tasks independently. Target Visit 10 OT Goal 2 Goal The patient will demonstrate increased livestock feeder/pinch strength with >30 lbs of livestock feeder strength with R hand and >10 lbs of lateral pinch strength in order to perform homemaking tasks. Target Visit 10 OT Problem 4 OT Problem #4 Impaired Functional ADLs OT Goal 1 Goal The patient will demonstrates adaptive technique to perform grooming tasks of washing hair and putting hair into a ponytail with modified independence. Target Visit 10
--- NOTE | 2023-09-16 17:18 | PTOPPROGNS ---
Assessment and note entered by JT File, PT Evaluation Information Assessment Status Progress Diagnosis low back pain, L LE pain, weakness, decreased balance Onset 08/17/23 Subjective Information patient reports she is better overall today, but still has pain in the knee. she reports she continues to have balance issues and difficulty walking. Assessment PT Clinical Summary mrs. robb presents to skilled PT services for her 10th skilled therapy visit. as of this date, she continues to have significant pain in the back and LE's, weakness in the R LE, and deficits in balance and ambulation. she met goal for HEP performance, but lacks achievement of all other goals. she will benefit from continued skilled PT to improve her objective/functional deficits to achieve remaining goals and improve her quality of life/functional mobility. Plan of Care Interventions Electrical Stimulation,Gait Training,Hot Pack/Cold Pack,Manual Therapy,Neuro Re-education,Patient/ Caregiver Educati,Therapeutic Activities, Therapeutic Exercise PT Services Indicated Yes Treatment Frequency and continue skilled PT per initial POC Duration These treatments will address the objective and functional deficits as defined above. The patient will be advanced safely and appropriately in order for the patient to progress towards his/her prior level of function. Additional exercises will be introduced and as well as a comprehensive home exercise program upon discharge, if needed, ?to ensure carryover of functional gains achieved in the clinic. This treatment plan has been reviewed and agreement upon by the patient.
--- NOTE | 2023-09-22 09:36 | PCPTNOTE ---
patient called and cancelled PT and OT today due to being ill. she is scheduled tomorrow.
--- NOTE | 2023-09-23 10:08 | OPREHPOC ---
Outpatient Therapy Plan of Care This is a Multidisciplinary Plan of Care that may contain components documented by all disciplines (PT, OT, and ST.) PT Problem 1 PT Problem #1 Knowledge Deficit PT Goal 1 Goal Patient to demonstrate independence with HEP Target Visit 6 Progress Met PT Problem 2 PT Problem #2 Pain PT Goal 1 Goal Patient to report highest pain at 4/10 in order to improve ability to ambulate house hold distances Target Visit 20 Progress Not Met Comment progressing PT Problem 3 PT Problem #3 Impaired Strength PT Goal 1 Goal Patient to demonstrate 4+/5 R ankle DF strength to decrease toe drag during swing phase of gait cycle and decrease fall risk Target Visit 20 Progress Not Met Comment progressing PT Problem 4 PT Problem #4 Impaired Functional Mobil PT Goal 1 Goal 1. patient to ambulate 600' during 6 min walk test with no occurance of toe drag 2. patient to improve Tinetti balance score by 9 points to decrease fall risk within the home 3. Patient to improve 5TSTS to <15 seconds to decrease fall risk 4. Patient to report ability to get out of bed with no assistance Target Visit 20 Progress Not Met Comment progressing OT Problem 1 OT Problem #1 Knowledge Deficit OT Goal 1 Goal The patient will demonstrate 100% knowledge and return demonstration of UE HEP in order to maintain progress at home. Target Visit 10 OT Problem 2 OT Problem #2 Impaired Coordination OT Goal 1 Goal The patient will demonstrate increased fine motor coordination performing 9-hole peg test in <2 minutes with B hands to improve ability to perform grooming tasks. Target Visit 10 OT Problem 3 OT Problem #3 Impaired Strength OT Goal 1 Goal The patient will demonstrate increased UE strength with 3/5 muscle strength to R elbow and 4+/5 strength to B shoulders, wrists and L elbow in order to perform bathing tasks independently. Target Visit 10 OT Goal 2 Goal The patient will demonstrate increased middle school professional/pinch strength with >30 lbs of middle school professional strength with R hand and >10 lbs of lateral pinch strength in order to perform homemaking tasks. Target Visit 10 OT Problem 4 OT Problem #4 Impaired Functional ADLs OT Goal 1 Goal The patient will demonstrates adaptive technique to perform grooming tasks of washing hair and putting hair into a ponytail with modified independence. Target Visit 10
--- NOTE | 2023-09-23 10:08 | OPREHPOC ---
Outpatient Therapy Plan of Care This is a Multidisciplinary Plan of Care that may contain components documented by all disciplines (PT, OT, and ST.) PT Problem 1 PT Problem #1 Knowledge Deficit PT Goal 1 Goal Patient to demonstrate independence with HEP Target Visit 6 Progress Met PT Problem 2 PT Problem #2 Pain PT Goal 1 Goal Patient to report highest pain at 4/10 in order to improve ability to ambulate house hold distances Target Visit 20 Progress Not Met Comment progressing PT Problem 3 PT Problem #3 Impaired Strength PT Goal 1 Goal Patient to demonstrate 4+/5 R ankle DF strength to decrease toe drag during swing phase of gait cycle and decrease fall risk Target Visit 20 Progress Not Met Comment progressing PT Problem 4 PT Problem #4 Impaired Functional Mobil PT Goal 1 Goal 1. patient to ambulate 600' during 6 min walk test with no occurance of toe drag 2. patient to improve Tinetti balance score by 9 points to decrease fall risk within the home 3. Patient to improve 5TSTS to <15 seconds to decrease fall risk 4. Patient to report ability to get out of bed with no assistance Target Visit 20 Progress Not Met Comment progressing OT Problem 1 OT Problem #1 Knowledge Deficit OT Goal 1 Goal The patient will demonstrate 100% knowledge and return demonstration of UE HEP in order to maintain progress at home. Target Visit 10 OT Problem 2 OT Problem #2 Impaired Coordination OT Goal 1 Goal The patient will demonstrate increased fine motor coordination performing 9-hole peg test in <2 minutes with B hands to improve ability to perform grooming tasks. Target Visit 10 OT Problem 3 OT Problem #3 Impaired Strength OT Goal 1 Goal The patient will demonstrate increased UE strength with 3/5 muscle strength to R elbow and 4+/5 strength to B shoulders, wrists and L elbow in order to perform bathing tasks independently. Target Visit 10 OT Goal 2 Goal The patient will demonstrate increased top and seat cover fitter/pinch strength with >30 lbs of top and seat cover fitter strength with R hand and >10 lbs of lateral pinch strength in order to perform homemaking tasks. Target Visit 10 OT Problem 4 OT Problem #4 Impaired Functional ADLs OT Goal 1 Goal The patient will demonstrates adaptive technique to perform grooming tasks of washing hair and putting hair into a ponytail with modified independence. Target Visit 10
--- NOTE | 2023-09-23 10:09 | PTOPREEVAL ---
Assessment and note entered by Ibis Joyner DPT Evaluation Information Assessment Status Re-evaluation Diagnosis low back pain, L LE pain, weakness, decreased balance Onset 08/17/23 Subjective Information patient reports that since start of PT she reports that she thinks her gait mechanics has improved. she has not had any falls since start of PT. she reports she is able to walk from parking lot into facility. she reports she still has difficulty with getting into and out of bed. she reports she has been seeing pain management regarding pain. she reports she is compliant with HEP. she would like to continue with skilled PT. Reported Pain Level Pain Score 8,7,7: Self Report Assessment PT Clinical Summary Ms. Liu has attended 12 visits of skilled PT with good progression towards goals. She demonstrates improved LE strength, improved gait mechanics and decreased fall risk indicated by 5xSTS and 6 min walk test. She has not had a fall since start of PT and is able to step through when ambulating. She reports improved ability to ambulate prolonged distances but is still limited by pain. She has improved ability to get up out of a chair but has difficulty with getting into and out of bed. She would benefit from continue skilled PT to address remaining impairments and return to PLOF. Plan of Care Interventions Electrical Stimulation,Gait Training,Hot Pack/Cold Pack,Manual Therapy,Neuro Re-education,Patient/ Caregiver Educati,Therapeutic Activities, Therapeutic Exercise PT Services Indicated Yes Treatment Frequency and continue skilled PT 2x weekly for 10 visits Duration These treatments will address the objective and functional deficits as defined above. The patient will be advanced safely and appropriately in order for the patient to progress towards his/her prior level of function. Additional exercises will be introduced and as well as a comprehensive home exercise program upon discharge, if needed, ?to ensure carryover of functional gains achieved in the clinic. This treatment plan has been reviewed and agreement upon by the patient.
--- NOTE | 2023-09-27 09:24 | PCPTNOTE ---
Cancelled session this morning. Waiting on approval from insurance. Peer to peer call scheduled this afternoon.
--- NOTE | 2023-10-01 14:29 | OTOPPROG ---
Assessment and note entered by Yelitza Naqvi, OT Evaluation Information Assessment Status Progress Diagnosis Upper extremity weakness Onset December 2022 Subjective Information The patient reports being able to hold up and bend her elbow on her own better. The patient reports that she pushed herself up with R UE the other day and didn't even notice it. The patient reports she still cannot use her shoulder like she wants go and reports 7/10 in hands. She reports that she has made improvements but wants to get her arm, more normal. Assessment OT Clinical Summary The patient demonstrates significant progress in UE strength, fine motor coordination, boat deckhand/pinch strength, and adaptive techniques for handwriting and hair tying that has led to increased independence with ADLs and leisure tasks. The patient demonstrates continued deficits with fine motor coordination of B UE, limited UE strength of R UE, and decreased boat deckhand strength that affects her ability to grasp items and maintain UE overhead to perform ADLs. The patient continues to require skilled OT to address deficits and return to independence. Therapist to continue to address functional improvements including strength and coordination but to also encorporate adaptive techniques for grooming tasks and buttoning buttons. Plan of Care OT Services Indicated Yes Treatment Frequency and 2x/week for 10 visits. Duration These treatments will address the objective and functional deficits as defined above. The patient will be advanced safely and appropriately in order for the patient to progress towards his/her prior level of function. Additional exercises will be introduced and as well as a comprehensive home exercise program upon discharge, if needed, ?to ensure carryover of functional gains achieved in the clinic. This treatment plan has been reviewed and agreement upon by the patient.
--- NOTE | 2023-10-13 09:08 | PCPTNOTE ---
10/13/23: Pt cancelled today's appointment because she is sick. -Sirena Ortiz, PT
--- NOTE | 2023-10-22 18:15 | OPREHPOC ---
Outpatient Therapy Plan of Care This is a Multidisciplinary Plan of Care that may contain components documented by all disciplines (PT, OT, and ST.) PT Problem 1 PT Problem #1 Knowledge Deficit PT Goal 1 Goal Patient to demonstrate independence with HEP Target Visit 6 Progress Met PT Problem 2 PT Problem #2 Pain PT Goal 1 Goal Patient to report highest pain at 4/10 in order to improve ability to ambulate house hold distances Target Visit 24 Progress Not Met Comment progressing PT Problem 3 PT Problem #3 Impaired Strength PT Goal 1 Goal Patient to demonstrate 4+/5 R ankle DF strength to decrease toe drag during swing phase of gait cycle and decrease fall risk Target Visit 24 Progress Not Met Comment progressing PT Problem 4 PT Problem #4 Impaired Functional Mobil PT Goal 1 Goal 1. patient to ambulate 600' during 6 min walk test with no occurance of toe drag. not met 2. patient to improve Tinetti balance score by 9 points to decrease fall risk within the home 3. Patient to improve 5TSTS to <15 seconds to decrease fall risk. not met 4. Patient to report ability to get out of bed with no assistance. met Target Visit 24 Progress Partially Met Comment progressing OT Problem 1 OT Problem #1 Knowledge Deficit OT Goal 1 Goal The patient will demonstrate 100% knowledge and return demonstration of UE HEP in order to maintain progress at home. Target Visit 10 Progress Met OT Problem 2 OT Problem #2 Impaired Coordination OT Goal 1 Goal The patient will demonstrate increased fine motor coordination performing 9-hole peg test in <1 minute with B hands to improve ability to perform grooming tasks. Target Visit 10 Progress Partially Met OT Problem 3 OT Problem #3 Impaired Strength OT Goal 1 Goal The patient will demonstrate increased UE strength with 3+/5 muscle strength to R elbow and 4+/5 strength to B shoulders, wrists and L elbow in order to perform bathing tasks independently. Target Visit 10 Progress Partially Met OT Goal 2 Goal The patient will demonstrate increased metal tube cutter/pinch strength with >30 lbs of metal tube cutter strength with R hand and >10 lbs of lateral pinch strength in order to perform homemaking tasks. Target Visit 10 Progress Partially Met OT Problem 4 OT Problem #4 Impaired Functional ADLs OT Goal 1 Goal The patient will demonstrates adaptive technique to perform grooming tasks of washing hair and putting hair into a ponytail with modified independence. Target Visit 10 Progress Partially Met
--- NOTE | 2023-10-22 18:16 | PTOPREEVAL ---
Assessment and note entered by JT File, PT Evaluation Information Assessment Status Re-evaluation Diagnosis low back pain, L LE pain, weakness, decreased balance Onset 08/17/23 Subjective Information patient reports she feels she is doing better overall. she reports she did find out she has carpal tunnel in both UE's. she reports she is not having surgery on either yet, but reports she is having surgery on the lower back next month. she reports she is now walking with a single point cane in therapy, but has continued to use a large based quad cane outside of therapy. she is going to get a single point cane for home this weekend. she reports she still struggles with her walking and balance, but is improved since beginning therapy. Reported Pain Level Pain Score 10,7,3: Self Report Pain Score 9,9,9: Self Report Assessment PT Clinical Summary mrs. robb presents to skilled PT services for her 18th skilled therapy visit. her therapy has consisted of exercises and activities thus far to improve her strength, balance, ambulation, and functional mobility. she has made progress in LE strength, gait mechanics, and balance. however, she still displays deficits, and has yet to fully achieve her goals. she is steadily making progress in therapy, and would benefit from continued skilled PT to work on full achievement of all goals to improve her functional activity performance and quality of life. Plan of Care Interventions Electrical Stimulation,Gait Training,Hot Pack/Cold Pack,Manual Therapy,Neuro Re-education,Patient/ Caregiver Educati,Therapeutic Activities, Therapeutic Exercise PT Services Indicated Yes Treatment Frequency and continue skilled PT 2x weekly for 12 more visits Duration These treatments will address the objective and functional deficits as defined above. The patient will be advanced safely and appropriately in order for the patient to progress towards his/her prior level of function. Additional exercises will be introduced and as well as a comprehensive home exercise program upon discharge, if needed, ?to ensure carryover of functional gains achieved in the clinic. This treatment plan has been reviewed and agreement upon by the patient.
--- NOTE | 2023-11-02 12:50 | PCOTNOTE ---
Client would benefit from a functional e-stim device to address NMRE of right shoulder and to decrease subluxation for increased RUE participation in daily tasks.
--- NOTE | 2023-11-02 14:48 | OTOPPROG ---
Assessment and note entered by Yelitza Naqvi, OT Evaluation Information Assessment Status Re-evaluation Diagnosis Upper extremity weakness Onset December 2022 Subjective Information The client reports she still cannot use her right shoulder like she wants to, but has noticed some improvement in her arm strength. She stated, I am happy I have this e-stim unit now so I can make some more improvement in my right arm. Assessment OT Clinical Summary Client pleasant throughout OT session and reported no pain this date. Client has made progression towards functional goals such that her UE ROM, strength, endurance, and coordination has improved . Client recently received GivMohr sling and Functional E-stim unit to assist with RUE NMRE and decrease right shoulder subluxation. Future treatment will be focused on NMRE of RUE in order to improved RUE participation in self care and home management tasks. Client would benefit from continued skilled occupational therapy services to address deficits to improve client's independence . Plan of Care Interventions Therapeutic Exercise,Manual Therapy,Neuro Re- education,Therapeutic Activities,Hot Pack/Cold Pack,Sensory Integrative Techn,Self-Care/Home Management OT Services Indicated Yes OT Services Indicated Yes Treatment Frequency and 2-3x/week x 10 visits Duration These treatments will address the objective and functional deficits as defined above. The patient will be advanced safely and appropriately in order for the patient to progress towards his/her prior level of function. Additional exercises will be introduced and as well as a comprehensive home exercise program upon discharge, if needed, ?to ensure carryover of functional gains achieved in the clinic. This treatment plan has been reviewed and agreement upon by the patient.
--- NOTE | 2023-11-08 11:28 | OTOPREEVAL ---
Assessment and note entered by Vicenta Alberto OT These treatments will address the objective and functional deficits as defined above. The patient will be advanced safely and appropriately in order for the patient to progress towards his/her prior level of function. Additional exercises will be introduced and as well as a comprehensive home exercise program upon discharge, if needed, ?to ensure carryover of functional gains achieved in the clinic. This treatment plan has been reviewed and agreement upon by the patient.
--- NOTE | 2024-01-10 10:43 | BUOTOPDC ---
Assessment and note entered by Yelitza Naqvi OT Evaluation Information Assessment Status Re-evaluation Diagnosis Upper extremity weakness Onset December 2022 Subjective Information The client reports she still cannot use her right shoulder like she wants to, but has noticed some improvement in her arm strength. She stated, I am happy I have this e-stim unit now so I can make some more improvement in my right arm. Reported Pain Level Pain Score 8,8,0,0: Self Report Pain Score 6,6,6,6: Self Report Pain Score 7,9,6,6: Self Report Pain Score 10,6,6,7: Self Report Pain Score 0: Self Report Pain Score 8,7,7: Self Report Pain Score 0: Self Report Pain Score 0: Self Report Pain Score 0: Self Report Pain Score 0: Self Report Pain Score 9,7,0: Self Report Pain Score 9,7,3: Self Report Pain Score 0: Self Report Pain Score 10,7,3: Self Report Pain Score 9,9,9: Self Report Pain Score 9,6,6: Self Report Pain Score 9,5,7: Self Report Pain Score 9,6,5: Self Report Pain Score 9,6,5: Self Report Pain Score 9,5,5: Self Report Pain Score 9,7,6: Self Report Pain Score 8,7,7: Self Report Pain Score 8,8,8: Self Report Pain Score Mild Pain: Rod Gill Pain Score 7,7,7: Self Report Pain Score 8,7,7: Self Report Pain Score 7,7,7: Self Report Pain Score 8,7,7: Self Report Pain Score 7,7,7: Self Report Pain Score 7,7,7: Self Report Pain Score 7,9,7: Self Report Pain Score 7,8,7: Self Report Pain Score 7,9,7: Self Report Pain Score 8,9,8: Self Report Pain Score 8,9,8: Self Report Pain Score 8,7,5: Self Report Pain Score 8,7,5: Self Report Pain Score 9,7,7: Self Report Pain Score 8,7,0: Self Report Pain Score 7,7,6: Self Report Pain Score 9,7,5: Self Report Pain Score 9,4,4: Self Report Pain Score 8,8,8: Self Report Pain Score 6,6,9: Self Report Pain Score 0,6,6: Self Report Pain Score 7,5: Self Report Pain Score 5,7: Self Report Assessment OT Clinical Summary Client pleasant throughout OT session and reported no pain this date. Client has made progression towards functional goals such that her UE ROM, strength, endurance, and coordination has improved . Progress is expected to be slow given the severity of diagnosis. Client recently received GivMohr sling and Functional E-stim unit to assist with RUE NMRE and decrease right shoulder subluxation. Future treatment will be focused on NMRE of RUE in order to improved RUE participation in self care and home management tasks. Client would benefit from continued skilled occupational therapy services to address deficits to improve client's independence. Plan of Care Interventions Therapeutic Exercise,Manual Therapy,Neuro Re- education,Therapeutic Activities,Hot Pack/Cold Pack,Sensory Integrative Techn,Self-Care/Home Management OT Services Indicated Yes Treatment Frequency and 2-3x/week x 10 visits Duration
--- NOTE | 2024-01-10 10:45 | PCOTNOTE ---
The patient's last treatment was 11/02/2023 with denial from insurance on 11/04/2023, due to denial the patient had to be discharged at that time. The patient required continue treatment but was discontinued due to insurance denial.
== END 2023-11-23 08:01 | disposition still patient (30) ==
LOC: CHSPT 14:33
PROVIDERS: PCP Internal Medicine; Visit Provider Internal Medicine
DX: Z47.89 Encounter for other orthopedic aftercare (principal); Z98.1 Arthrodesis status
CPT/HCPCS: 97110; 97112; 97150; 97162; 97166; 97168; 97530; 97750

== ENCOUNTER 2023-09-14 08:44 | Outpatient (CLI) | payer OTHER, SELFPAY ==
--- NOTE | ~2023-09-14 | MR_ITS ---
MRI of the lumbar spine Clinical History: Spinal stenosis Technique: Axial T2-weighted images, and sagittal T1-weighted, T2-weighted, and T2 fat-sat images wer e acquired. Findings: No fracture identified. There is minimal grade 1 retrolisthesis of L3 over L4. There are re active marrow signal changes about the L4-L5 and L5-S1 disc spaces due to underlying degenerative dis c disease. At L1-L2, there is no significant disc bulge or herniation. There is mild facet arthropathy. No centr al canal stenosis or neural foraminal narrowing. At L2-L3, there is degenerative disc narrowing with mild disc bulge and mild facet arthropathy. No ce ntral canal stenosis or neural foraminal narrowing. At L3-L4, there is mild disc bulge and moderate to advanced facet arthropathy. No kimani central canal stenosis. There is severe right neural foraminal narrowing, and moderate left neural foraminal narro wing. At L4-L5, there is diffuse disc bulge with severe facet arthropathy, resulting in severe spinal canal stenosis/thecal sac compression. There is severe right neural foraminal compromise, and moderate lef t neural foraminal comprise. At L5-S1, there is central disc protrusion with underlying disc bulge and advanced facet arthropathy. No central canal stenosis. There is severe left neural foraminal narrowing, and mild right neural fo raminal narrowing. Paravertebral soft tissues are unremarkable. Impression: Moderate to severe degenerative spondylosis, as detailed above, probably worst at L4-L5. Reviewed, dictated and finalized at [facility]. RMATION AND DATA ARCHITECT ANALYST Impression: Moderate to severe degenerative spondylosis, as detailed above, probably worst at L4-L5.
== END 2023-09-14 08:45 | disposition home or self-care (01) ==
LOC: ANHIMG 08:45
PROVIDERS: PCP Internal Medicine; Visit Provider Physician Assistant
DX: M48.061 Spinal stenosis, lumbar region without neurogenic claudication (principal); M47.896 Other spondylosis, lumbar region
CPT/HCPCS: 72148

== ENCOUNTER 2023-09-20 12:05 | Outpatient (CLI) | payer OTHER, SELFPAY ==
--- NOTE | ~2023-09-20 | XR_ITS ---
EXAMINATION: XR lumbar spine min 4V DATE: 09/20/2023 12:33 INDICATION: Low back pain TECHNIQUE: Anteroposterior and lateral in neutral, flexion and extension views of the lumbar spine we re obtained. COMPARISON: 04/11/2021 FINDINGS: There are 3 mm of retrolisthesis of L3 on L4. No hypermobility is present with flexion or e xtension. There is severe loss of intervertebral disc space height at L4-5 and moderate loss of disc space height at L3-4 and L5-S1. The vertebral body heights are maintained. Small degenerative osteoph ytes project from the anterior endplates of multiple vertebral bodies. There are 20 degrees of lower lumbar levoscoliosis, new since the comparison examination. A moderate volume of colonic stool is pre sent. There is moderate facet joint osteoarthritis of the lower lumbar spine. IMPRESSION: 1. Moderate lumbar spondylosis with developing lower lumbar scoliosis. Reviewed, dictated and finalized at location B. D INSURANCE SALES MANAGER
--- NOTE | ~2023-09-20 | XR_ITS ---
EXAMINATION:XR_[id number]_CR DATE: 09/20/2023 12:33 INDICATION: Arthrodesis status TECHNIQUE: AP, lateral, lateral swimmers and odontoid views of the cervical spine are provided. COMPARISON: None FINDINGS: There are changes of posterior fusion from C3 through T1 and laminectomy. The odontoid proc ess is intact. No fracture is identified. The vertebral body heights are maintained. There is mild lo ss of intervertebral disc space height at C3-4, C5-6 and C6-7. Prevertebral soft tissues are normal. Small degenerative osteophytes project from the anterior endplates of multiple vertebral bodies. No h ardware failure or loosening are identified. IMPRESSION: 1. Moderate cervical spondylosis and surgical changes without acute osseous abnormality identified. Reviewed, dictated and finalized at location B. CIATE PROFESSOR OF GEOLOGY IMPRESSION: 1. Moderate cervical spondylosis and surgical changes without acute osseous abn ormality identified.
== END 2023-09-20 12:06 | disposition home or self-care (01) ==
LOC: ANHIMG 12:11
PROVIDERS: PCP Internal Medicine; Visit Provider Physician Assistant
DX: M48.061 Spinal stenosis, lumbar region without neurogenic claudication (principal); Z98.1 Arthrodesis status; M47.896 Other spondylosis, lumbar region; M47.892 Other spondylosis, cervical region
CPT/HCPCS: 72040; 72110

== ENCOUNTER 2023-11-26 08:03 | Outpatient (RCR) | payer OTHER, SELFPAY ==
--- NOTE | 2023-12-01 08:58 | OPREHPOC ---
Outpatient Therapy Plan of Care This is a Multidisciplinary Plan of Care that may contain components documented by all disciplines (PT, OT, and ST.) PT Problem 1 PT Problem #1 Knowledge Deficit PT Goal 1 Goal Patient to demonstrate independence with HEP Target Visit 6 Progress Met PT Problem 2 PT Problem #2 Pain PT Goal 1 Goal Patient to report highest pain at 4/10 in order to improve ability to ambulate house hold distances Target Visit 24 Progress Not Met Comment . PT Problem 3 PT Problem #3 Impaired Strength PT Goal 1 Goal Patient to demonstrate 4+/5 R ankle DF strength to decrease toe drag during swing phase of gait cycle and decrease fall risk Target Visit 24 Progress Not Met Comment . PT Problem 4 PT Problem #4 Impaired Functional Mobil PT Goal 1 Goal 1. patient to ambulate 600' during 6 min walk test with no occurance of toe drag. not met 2. patient to improve Tinetti balance score by 9 points to decrease fall risk within the home. not met 3. Patient to improve 5TSTS to <15 seconds to decrease fall risk. not met 4. Patient to report ability to get out of bed with no assistance. met Target Visit 24 Progress Partially Met Comment . OT Problem 1 OT Problem #1 Knowledge Deficit OT Goal 1 Goal The patient will demonstrate 100% knowledge and return demonstration of UE HEP in order to maintain progress at home. Target Visit 10 Progress Met OT Problem 2 OT Problem #2 Impaired Coordination OT Goal 1 Goal The patient will demonstrate increased fine motor coordination performing 9-hole peg test in <1 minute with B hands to improve ability to perform grooming tasks. Target Visit 28 Progress Partially Met
--- NOTE | 2023-12-01 08:58 | PTOPREEVAL ---
Assessment and note entered by JT File, PT Evaluation Information Assessment Status Re-evaluation Diagnosis low back pain, L LE pain, weakness, decreased balance Onset 08/17/23 Subjective Information patient reports she is having surgery on her lower back on 12/03/23. she reports she is having a clean up of the L3-L5 lumbar spine. she reports she thinks she will be out from therapy for at least a few weeks. she reports she has been doing well with therapy, and has seen improvements in her balance and walking. however, she still has pain in the lower back and legs. Reported Pain Level Pain Score 6,7: Self Report Assessment PT Clinical Summary mrs. robb presents to skilled PT services for treatment and re-evaluation of progress towards goals for PT of her low back pain, L LE pain, weakness, and decreased balance. she is walking with a cane for assistance, independent with transfers/bed mobility, and reports feeling better she has better balance. she has not met many goals, but has made progress towards all goals for skilled PT. she would benefit from continued skilled PT. however, she is having surgery on the lower back this wednesday. anticipating patient will be out of therapy for a few weeks and then return for re-evaluation post-op. currently she continues to display deficits in balance, ambulation mechanics, ambulation speend, R LE strength, and pain. Plan of Care Interventions Therapeutic Exercise,Patient/Caregiver Educati, Manual Therapy,Neuro Re-education,Therapeutic Activities,Hot Pack/Cold Pack,Electrical Stimulation,Gait Training PT Services Indicated Yes Treatment Frequency and hold PT at this time, and re-evaluate patient for Duration new goals/continued goals and needs when post-op. These treatments will address the objective and functional deficits as defined above. The patient will be advanced safely and appropriately in order for the patient to progress towards his/her prior level of function. Additional exercises will be introduced and as well as a comprehensive home exercise program upon discharge, if needed, ?to ensure carryover of functional gains achieved in the clinic. This treatment plan has been reviewed and agreement upon by the patient.
== END 2023-12-01 13:37 | disposition home or self-care (01) ==
LOC: CHSPT 08:03
PROVIDERS: PCP Internal Medicine; Visit Provider Internal Medicine
DX: Z47.89 Encounter for other orthopedic aftercare (principal); G82.50 Quadriplegia, unspecified; G95.89 Other specified diseases of spinal cord; Z98.1 Arthrodesis status
CPT/HCPCS: 97110; 97112; 97750

== ENCOUNTER 2024-01-03 09:51 | Outpatient (RCR) | payer OTHER, SELFPAY ==
--- NOTE | 2024-01-04 15:50 | BUOTOPEVAL ---
Assessment and note entered by Yelitza Naqvi OT Evaluation Information Assessment Status Evaluation Diagnosis Arm weakness; cervical myelopathy Reported Pain Level Pain Score Moderate Pain: Rod Gill Assessment OT Clinical Summary The patient is a 48 year old female who was referred to outpatient OT due to R UE weakness following cervical myelopathy. The patient previously demonstrated WNL UE AROM, strength, game attendant/pinch strength, fine motor coordination, and function of R UE needed to perform daily tasks such as work and grooming tasks of doing her hair. She demonstrates no subluxation of R shoulder at this time but significant weakness in shoulder flexors, abductors and extensors along with scapular weakness/limited mobility making it difficulty to perform functional tasks. The patient demonstrates significant dysfunction of R UE scoring 72% on QuickDash Questionnaire resulting in limited use of arms to perform daily functions. She utilizes compensatory muscle groups to attempt to control UE and requires skilled OT to strengthen targeted muscle groups for increased function of UE. OT to address scapular mobility, scapular strength, shoulder AROM and strength, game attendant strength and fine motor coordination in order to lead to increased use of UE during ADLs and work tasks. Plan of Care Interventions Therapeutic Exercise,Manual Therapy,Neuro Re- education,Therapeutic Activities,Electrical Stimulation,Sensory Integrative Techn,Self-Care/ Home Management,Prosthetic Training OT Services Indicated Yes Treatment Frequency and 2-3x/week for 10 visits. Duration These treatments will address the objective and functional deficits as defined above. The patient will be advanced safely and appropriately in order for the patient to progress towards his/her prior level of function. Additional exercises will be introduced and as well as a comprehensive home exercise program upon discharge, if needed, ?to ensure carryover of functional gains achieved in the clinic. This treatment plan has been reviewed and agreement upon by the patient.
--- NOTE | 2024-01-05 14:30 | BUOTOPEVAL ---
Assessment and note entered by Yelitza Naqvi OT Evaluation Information Assessment Status Evaluation Diagnosis Arm weakness; cervical myelopathy Reported Pain Level Pain Score 0: Self Report Pain Score Moderate Pain: Rod Gill Assessment OT Clinical Summary The patient is a 48 year old female who was referred to outpatient OT due to R UE weakness following cervical myelopathy. 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 She demonstrates no subluxation of R shoulder at this time but significant weakness in shoulder flexors, abductors and extensors along with scapular weakness/limited mobility making it difficulty to perform functional tasks. The patient demonstrates significant dysfunction of R UE scoring 72% on QuickDash Questionnaire resulting in limited use of arms to perform daily functions. She utilizes compensatory muscle groups to attempt to control UE and requires skilled OT to strengthen targeted muscle groups for increased function of UE. OT to address scapular mobility, scapular strength, shoulder AROM and strength, speech pathology teacher strength and fine motor coordination in order to lead to increased use of UE during ADLs and work tasks. Plan of Care Interventions Therapeutic Exercise,Manual Therapy,Neuro Re- education,Therapeutic Activities,Electrical Stimulation,Sensory Integrative Techn,Self-Care/ Home Management,Prosthetic Training OT Services Indicated Yes Treatment Frequency and 2-3x/week for 10 visits. Duration These treatments will address the objective and functional deficits as defined above. The patient will be advanced safely and appropriately in order for the patient to progress towards his/her prior level of function. Additional exercises will be introduced and as well as a comprehensive home exercise program upon discharge, if needed, ?to ensure carryover of functional gains achieved in the clinic. This treatment plan has been reviewed and agreement upon by the patient.
== END 2024-01-07 23:59 | disposition home or self-care (01) ==
LOC: CHSOT 09:51
PROVIDERS: PCP Internal Medicine; Visit Provider Internal Medicine
DX: R53.1 Weakness (principal); G95.89 Other specified diseases of spinal cord; Z98.890 Other specified postprocedural states
CPT/HCPCS: 97110; 97112; 97140; 97166; 97530

== ENCOUNTER 2024-03-17 13:01 | Outpatient (RCR) | payer OTHER, SELFPAY ==
--- NOTE | 2024-03-17 14:18 | OPREHPOC ---
Outpatient Therapy Plan of Care This is a Multidisciplinary Plan of Care that may contain components documented by all disciplines (PT, OT, and ST.) PT Problem 1 PT Problem #1 Knowledge Deficit PT Goal 1 Goal 1. independent and compliant with HEP Target Visit 6 PT Problem 2 PT Problem #2 Impaired Strength PT Goal 1 Goal 1. 4+/5 or better bilateral hip strength 2. 5/5 R knee strength 3. 5/5 bilateral ankle strength Target Visit 12 PT Problem 3 PT Problem #3 Impaired Functional Mobil PT Goal 1 Goal 1. oswestry to display less than 50% functional deficits 2. ambulation with SPC in the L hand with equal heel contact and no steppage mechanics of the R LE 3. patient to displays safe squat and lunge mechanics with bilateral LE's 4. patient to display 1-2 beat clonus or less in the R gastroc Target Visit 12
--- NOTE | 2024-03-17 14:18 | PTOPEVAL1 ---
Assessment and note entered by JT File, PT Evaluation Information Assessment Status Evaluation Diagnosis lumbar spinal decompression ICD-10 Condition Codes (PT) Pain in low back M54.50 Other ICD-10 Condition Codes ( Z98.890 PT) Onset 12/03/23 Subjective Information patient reports she had lumbar decompression on . she also had a neck fusion on 06/11/23. she reports her lower body is still not moving right. she reports she has a lot of pain in the lower half of her body. she reports she has pain from the R buttock down to the R knee, and all the way down the L LE. she reports she has no feeling in her toes. she reports she has had a couple falls since her surgery. she reports she struggles with her legs giving out on her. she reports she feels like she has a band around her waist. she had injections to the L side lumbar spine on 02/08. she reports she is having more injections to the R side of the back on 03/29/24. she reports she has difficulty with rolling over in bed. she reports she is getting set up to see a neurologist . Reported Pain Level Pain Score 8,6: Self Report Assessment PT Clinical Summary mrs. 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 she has had cervical and lumbar decompression both in the last year. she continues to have increased tone in the LE's today, weakness in the LE's, abnormal gait mechanics, and poor balance as a result of the spinal cord compression. continued skilled PT is indicated to improve her objective/functional deficits and improve her functional activity performance/quality of life. Plan of Care Interventions Gait Training,Neuro Re-education,Patient/Caregiver Educati,Therapeutic Activities,Therapeutic Exercise PT Services Indicated Yes Treatment Frequency and 3x weekly for 12 visits Duration These treatments will address the objective and functional deficits as defined above. The patient will be advanced safely and appropriately in order for the patient to progress towards his/her prior level of function. Additional exercises will be introduced and as well as a comprehensive home exercise program upon discharge, if needed, ?to ensure carryover of functional gains achieved in the clinic. This treatment plan has been reviewed and agreement upon by the patient.
--- NOTE | 2024-04-07 15:04 | OPREHPOC ---
Outpatient Therapy Plan of Care This is a Multidisciplinary Plan of Care that may contain components documented by all disciplines (PT, OT, and ST.) PT Problem 1 PT Problem #1 Knowledge Deficit PT Goal 1 Goal / Goal Update 1. independent and compliant with HEP Target Visit 6 Progress Met PT Problem 2 PT Problem #2 Impaired Strength PT Goal 1 Goal / Goal Update 1. 4+/5 or better bilateral hip strength 2. 5/5 R knee strength 3. 5/5 bilateral ankle strength Target Visit 12 PT Problem 3 PT Problem #3 Impaired Functional Mobil PT Goal 1 Goal / Goal Update 1. oswestry to display less than 50% functional deficits 2. ambulation with SPC in the L hand with equal heel contact and no steppage mechanics of the R LE . not met 3. patient to displays safe squat and lunge mechanics with bilateral LE's 4. patient to display 1-2 beat clonus or less in the R gastroc. not met 5. patient to ambulate 600ft or more in 6 minutes Target Visit 12 Progress Not Met
--- NOTE | 2024-04-07 15:04 | PTOPPROG ---
Assessment and note entered by JT File, PT Evaluation Information Assessment Status Progress Diagnosis lumbar spinal decompression ICD-10 Condition Codes (PT) Pain in low back M54.50 Other ICD-10 Condition Codes ( Z98.890 PT) Onset 12/03/23 Subjective Information patient reports she been so-so lately. she has only fallen once since starting PT on 03/17/24. she reports she has been doing her exercises at home. she reports she still has difficulty walking . she reports she has radicular symptoms down the R buttock and into the R LE. she reports she had an injection last week, and it did not help. she reports she is going to see a neurologist next week about a possible prescription for her tone. patient reports she ambulates with more smooth mechanics when walking backwards. she reports she continues to fluctuate in how she feels from day to day as she will have some days with better balance/walking, and other days with more shaking in the R LE, and less stability when walking. Assessment PT Clinical Summary mrs. robb presents to skilled PT for her 10th skilled PT visit. she displays continued deficits in gait mechanics, but less steppage gait on the R LE. she also continues to display a multi-beat clonus and poor balance/stability without UE assist. she would benefit from continued skilled PT to address her objective/functional deficits and achieve all goals for skilled PT. Plan of Care Interventions Gait Training,Neuro Re-education,Patient/Caregiver Educati,Therapeutic Activities,Therapeutic Exercise PT Services Indicated Yes Treatment Frequency and continue skilled PT per initial POC Duration These treatments will address the objective and functional deficits as defined above. The patient will be advanced safely and appropriately in order for the patient to progress towards his/her prior level of function. Additional exercises will be introduced and as well as a comprehensive home exercise program upon discharge, if needed, ?to ensure carryover of functional gains achieved in the clinic. This treatment plan has been reviewed and agreement upon by the patient.
--- NOTE | 2024-04-12 11:19 | OPREHPOC ---
Outpatient Therapy Plan of Care This is a Multidisciplinary Plan of Care that may contain components documented by all disciplines (PT, OT, and ST.) PT Problem 1 PT Problem #1 Knowledge Deficit PT Goal 1 Goal / Goal Update 1. independent and compliant with HEP Target Visit 6 Progress Met PT Problem 2 PT Problem #2 Impaired Strength PT Goal 1 Goal / Goal Update 1. 4+/5 or better bilateral hip strength. met sitting 2. 5/5 R knee strength. not met 3. 5/5 bilateral ankle strength. not met Target Visit 12 Progress Partially Met PT Problem 3 PT Problem #3 Impaired Functional Mobil PT Goal 1 Goal / Goal Update 1. oswestry to display less than 50% functional deficits. not met 2. ambulation with SPC in the L hand with equal heel contact and no steppage mechanics of the R LE . not met 3. patient to displays safe squat and lunge mechanics with bilateral LE's. partially met when holding onto // bars 4. patient to display 1-2 beat clonus or less in the R gastroc. not met 5. patient to ambulate 600ft or more in 6 minutes. met Target Visit 12 Progress Partially Met
--- NOTE | 2024-04-12 11:19 | PTOPDC ---
Assessment and note entered by JT File, PT Evaluation Information Assessment Status Discharge Diagnosis lumbar spinal decompression ICD-10 Condition Codes (PT) Pain in low back M54.50 Other ICD-10 Condition Codes ( Z98.890 PT) Onset 12/03/23 Subjective Information patient reports she is being sent to an ortho. she reports she is supposed to go over options of baclofen injections or some sort of stimulator. she reports she did start baclofen pills yesterday . she reports she slept better last night. Reported Pain Level Pain Score 5,3: Self Report Pain Score 2,4: Self Report Assessment PT Clinical Summary mrs. robb presents to skilled PT services today for her 12th skilled PT visit. during her time in therapy, she has made progress in LE strength, ambulation speed, and independence/safety with functional activities. however, she still lacks full strength and functional goals (especially pertaining to ambulation mechanics). she is scheduled to have an evaluation for possible other treatments for her increased LE/UE tone in the near future. at this time, patient will DC from skilled PT, and continue with HEP independent at home. Plan of Care PT Services Indicated Yes
== END 2024-04-12 12:58 | disposition home or self-care (01) ==
LOC: CHSPT 13:01
DX: M54.50 Low back pain, unspecified (principal); Z98.890 Other specified postprocedural states
CPT/HCPCS: 97110; 97112; 97140; 97161; 97530

== ENCOUNTER 2024-04-27 21:32 | Emergency (ER) | payer OTHER, SELFPAY ==
--- NOTE | ~2024-04-27 | XR_ITS ---
EXAM: XR ribs RT 2V DATE: 04/27/2024 22:05 HISTORY: Rib injury . COMPARISON: None available. FINDINGS: Partially visualized posterior cervical fusion hardware. Visualized lung parenchyma is wilder ar. No osseous fracture or dislocation. IMPRESSION: No acute osseous finding in the right ribs. Reviewed, dictated and finalized at location K.
--- NOTE | ~2024-04-27 | XR_ITS ---
EXAM: XR ankle LT min 3V DATE: 04/27/2024 22:06 HISTORY: ankle injury . COMPARISON: None available. FINDINGS: Normal mineralization. No fracture or dislocation. No lytic or blastic lesion. Joint space s are maintained. No erosion or periosteal change. Mild lateral ankle soft tissue swelling. IMPRESSION: No acute osseous finding in the left ankle. Reviewed, dictated and finalized at location K.
[2024-04-27 21:32] VITALS: BP 158/103; PULSE 94; RESP 18; TEMP 36.4; O2SAT 99
--- NOTE | 2024-04-27 21:41 | ED.FALL ---
HPI - Fall General Chief Complaint: Fall Stated Complaint: Injury to R Hip and L ankle Time Seen by Provider: 04/27/24 21:41 Source: patient and family Mode of arrival: wheelchair Limitations: no limitations History of Present Illness HPI Narrative: this is a 49-year-old female with a history of neuropathy presents after she had a ground level fall earlier this morning injuring her right rib area and left ankle no other injuries noted no shortness of breath no chest pain. Patient has a chronic neck pain and is currently taking narcotic pain medicine and had pain medication earlier today. complaint: fall Onset (ago): hour(s) Fall from: standing Place fall occurred: home Loss of consciousness: none Prolonged down time: no Symptoms prior to fall: none Related Data Home Medications Medication Instructions Recorded Confirmed hydroxyzine HCl 50 mg tablet 50 mg PO TID 09/01/23 04/27/24 oxycodone-acetaminophen 5 mg-325 1 tablet PO Q6H PRN Pain, Moderate 09/01/23 04/27/24 mg tablet trazodone 50 mg tablet 50 mg PO QHS PRN Insomnia 09/01/23 04/27/24 baclofen 10 mg tablet 10 mg PO TID 04/27/24 04/27/24 pregabalin 150 mg capsule 150 mg PO BID 04/27/24 04/27/24 Allergies Allergy/AdvReac Type Severity Reaction Status Date / Time No Known Allergies Allergy Unknown Verified 09/20/23 10:30 Review of Systems Review of Systems: All systems reviewed & are unremarkable except as noted in HPI and below PMFSH Past Medical History Medical History Nausea & vomiting Surgical History Surgical History H/O wrist surgery History of bilateral tubal ligation No significant past surgical history Family History Family History Father Hyperlipidemia Hypertension Sibling Hypertension Social History Social History Smoking packs per day: 1 Smoking cigarettes per day: 20.0 Smoking status: Former smoker Tobacco type: cigarettes Alcohol intake: current Alcohol use details: 2 glasses of wine monthly Substance use: current Substance use type: marijuana Do You Feel Safe in your Home?: Yes Lack of Transportation: No Lack of Food: Sometimes True Current Housing: I Have Housing Concerned About Future Housing: No Difficulty Paying Gas/Electric Bills: No Difficulty Paying for Meds: No Currently Unemployed: YES Education: High School Diploma/GED Difficulty w/ Childcare or Family Care: No Exam Const: General: healthy appearing Nutritional Appearance: well nourished Orientation/consciousness: patient oriented x3 Limitations: no limitations Chest: Chest palpation & inspection: normal inspection of the chest Resp: Effort & Inspection: normal respiratory effort Auscultation: clear to auscultation bilaterally Cardio: Rate: regular rate Rhythm: regular rhythm GI: GI Palp: Yes Soft to palpation Auscultation: normal bowel sounds Skin: General skin exam: normal color Wounds: no wounds Neuro: General: patient oriented x3 and moves all extremities Extrem: Other: Tender right rib area with palpation and tender left ankle with mild swelling and decreased range of motion secondary to pain and inflammation. Course Course Emergency Course: Patient had x-rays performed and reviewed patient had narcotic pain medication that she has a she used prior to arrival to the ER. Critical Care Time Critical Care Time Critical Care Time: No Discharge Plan Discharge Clinical Impression: Rib pain Ankle sprain Qualifiers: Encounter type: initial encounter Involved ligament of ankle: other ligament Laterality: left Qualified Code(s): S93.492A - Sprain of other ligament of left ankle, initial encounter Patient Disposition: Home, Self-Care Condition: Stable Petty
--- NOTE | 2024-04-27 21:45 | PC.NURSE ---
isidro transported to radiology
--- NOTE | 2024-04-27 22:02 | PC.NURSE ---
returned to room
[2024-04-27 22:12] VITALS: BP 128/77; PULSE 77; RESP 20; O2SAT 95
== END 2024-04-27 22:25 | disposition home or self-care (01) ==
LOC: CHSED 22:09
PROVIDERS: Emergency Provider Emergency Medicine; PCP Internal Medicine
DX: S93.492A Sprain of other ligament of left ankle, initial encounter (principal); R07.81 Pleurodynia; Z79.899 Other long term (current) drug therapy; Z79.891 Long term (current) use of opiate analgesic; Z87.891 Personal history of nicotine dependence; W18.30XA Fall on same level, unspecified, initial encounter
CPT/HCPCS: 71100; 73610; 99284

== ENCOUNTER 2025-03-29 11:34 | Outpatient (CLI) | payer OTHER, SELFPAY ==
--- NOTE | ~2025-03-29 | XR_ITS ---
EXAMINATION: XR chest 2V 03/29/2025 12:14 INDICATION: Chest palpitations and fatigue PROCEDURE: 2 view chest COMPARISON: 05/20/2020 FINDINGS: The lungs are clear. The cardiomediastinal silhouette is within normal limits. There are no pleural effusions. There is no pneumothorax suspected. There are fusion changes of the lower cervical and upper thoracic spine. IMPRESSION: 1: NO ACUTE CARDIOPULMONARY DISEASE. Reviewed, dictated and finalized at location O.
--- OUTSIDE RECORDS SUMMARY | 2025-03-29 11:38 | XMS_ITS | Clinical Summary ---
Author Organization [facility] Address [address] [place] [address] Care Team Providers Care Electrical Instrument Maker Name Role Phone Unavailable Primary Care Provider Unavailabl e Medications ibuprofen (MOTRIN) 600 MG tablet Take 1 tablet (600 mg total) by mouth. FREQUENCY UNKNOWN Active Active Problems Problem Noted Date Diagnosed Date Degenerative cervical spinal stenosis 12/08/2023 Immunizations Immunization Administration Dates Next Due Pfizer SARS-CoV-2 Vaccination 12/08/2023 (Deferred: Offered and declined - Patient does not want the Covid Shot),11/08/2023(Deferred: Offered and declined - Patient does not want a Covid Shot) Social History Tobacco Use Types Packs/Day Years Used Date Smoking Tobacco: Former Cigarettes 1 20 1 - 05/04/2023 Smokeless Tobacco: Never Tobacco Cessation:Counseling Given: Not Answered [facility] Utilities Answer Date Recorded In the past 12 months has [facility] electric, gas, oil, or water company threatened to shut off services in your home? No 12/09/2023 Social Connection and Isolat ion Panel [NHANES] Answer Date Recorded In a typical week, how many times do you talk on the phone with family, friends, or neighbors? More than three times a week 12/09/2023 How often do you get togethe r with friends or relatives? More than three times a week 12/09/2023 How often do you attend chur ch or taoism services? More than 4 times per year 12/09/2023 Do you belong to any clubs o r organizations such as confucianism groups, unions, fraternal or athletic groups, or school groups? No 12/09/2023 How often do you attend meet ings of the clubs or organizations you belong to? Never 12/09/2023 Are you , , di vorced, , never , or living with a partner? 12/09/2023 Overall Financial Resource Strain (CARDIA) Answe r Date Recorded How hard is it for you to pa y for the very basics like food, housing, medical care, and heating? Not hard at all 12/09/2023 [facility] - Occupational Stress Questionnaire Answer Date Recorded Do you feel stress - tense, restless, nervous, or anxious, or unable to sleep at night because your mind is troubled all the time - these days? Rather much 12/18/2023 Hunger Vital Sign Answer Date Recorded Within the past 12 months, y ou worried that your food would run out before you got the money to buy more. Never true 12/09/19 24 Within the past 12 months, t he food you bought just didn't last and you didn't have money to get more. Never true 12/09/2023 Housing Stability Vital Sign Answer Souleymane e Recorded In the last 12 months, was t here a time when you were not able to pay the mortgage or rent on time? No 12/09/2023 Number of Times Moved in the Last Year Not on fi le 12/09/2023 Homeless in the Last Year Not on file 2023 Domestic Abuse Assessment Answer Date R ecorded Do you feel safe in your relationships at home? Yes 12/08/2023 Physical Abuse Denies 12/08/2023 HRSN Domestic Abuse - Type of Abuse Not on file 12/08/2023 HRSN Domestic Abuse - Time Frame Not on file 12/08/2023 HRSN Domestic Abuse - Signs and Symptoms Not on file 12/08/2023 Verbal Abuse Denies 12/08/2023 HRSN Domestic Abuse - Reported To Not on file 12/08/2023 SM SDOH Transportation Source Answer Da te Recorded Has lack of transportation k ept you from medical appointments or from getting medications? No 12/17/2023 HRSN Transportation - Daily Living Not on file 12/17/2023 HRSN Depression PHQ-2 Answer Date Recor ded Feeling down, depressed, or hopeless 3 12/18/2023 Little interest or pleasure in doing things 3 12/18/2023 Comments Unknown Sex and Gender Information Value Date Recorded Sex Assigned at Not on file Legal Sex Female 2:59 PM EDT Gender Identity Not on file Sexual Orientation Not on file Last Filed Vital Signs Vital Sign Reading Time Taken Comments Blood Pressure 125/84 12/18/2023 8:21 AM CDT Pulse 77 12/18/2023 8:21 AM CDT Temperature 37.1 C (98.7 F) 12/18/2023 8:21 AM CDT Respiratory Rate 18 12/18/2023 8:21 AM CDT Oxygen Saturation 96% 12/18/2023 8:21 AM CDT Inhaled Oxygen Concentration - - Weight 79.8 kg (176 lb) 12/08/2023 8:00 PM CDT Height 157.5 cm (5' 2) 12/08/2023 8:00 PM CDT Body Mass Index 32.19 12/08/2023 8:00 PM CDT Plan of Treatment Health Maintenance Due Date Last Done Comments CT Colonography 1975 Colonoscopy 1975 Colorectal Cancer Screening 1975 FIT-DNA (Cologuard) 1975 FIT 1975 FOBT 1975 HPV/PAP 1975 Sigmoidoscopy 1975 Annual Visit Topic 02/06/1976 MMR Vaccines (1 of 1 - Stand beau series) 02/06/1976 Hepatitis C Screening 1993 DTaP/Tdap/Td Vaccines (1 - Tdap) 1994 Hepatitis B Vaccines (1 of 3 - 19+ 3-dose series) 1994 Pap Smear 02/06/1996 Cervical Cancer Screening 2005 HPV/Cotest 2005 HPV 2005 Mammogram 2015 HIB Vaccines Aged Out No longer eligi ble based on patient's age to complete this topic HPV Vaccines Aged Out No longer eligi ble based on patient's age to complete this topic Hepatitis A Vaccines Aged Out No long er eligible based on patient's age to complete this topic IPV Vaccines Aged Out No longer eligi ble based on patient's age to complete this topic Meningococcal Vaccine Aged Out No aide terell eligible based on patient's age to complete this topic Pneumococcal Vaccine: Pediat rics (0 to 5 years) and At-Risk Patients (6 to 64 Years) Aged Out No longer eligible b ased on patient's age to complete this topic Advance Directives * Full Resuscitation (Latest Code Status on File) Date Activated Date Inactivated Comments 12/08/2023 9:54 PM 12/18/2023 1:31 PM Question Answer Comments I have discussed this order with the patient or his/her surrogate and have received informed consent. Yes
--- OUTSIDE RECORDS SUMMARY | 2025-03-29 11:38 | XMS_ITS | Clinical Summary ---
Author Organization [facility] Address [address] [place] [address] Care Team Providers Care Cyber Transport Systems Specialist Name Role Phone Ra Ruggiero MD Primary Care Provider [phone] Source Comments [facility] [email or web address],non-owned Affiliates and Associated Physician Practices is amultiple site organization consisting of ambulatory clinics and hospital sitesin [place], [place], [place] and [place]. This disclosure is being madepursuant to the Care Everywhere program and may not contain all information available regarding this patient. Last updated 18.[facility] [email or web address] Allergies No known active allergies Medications * Be aware that medications may not be up to date on this document. Alwaysverify current medications with the patient. hydrOXYzine HCl (Atarax) 50 MG tablet Take 1 (one) tablet by mouth nightly as needed 3 Active traZODone (Desyrel) 50 MG tablet Take 1 (one) tablet by mouth 3 Active oxyCODONE-aceta minophen (Percocet) 5-325 MG tabletIndicatio ns:Cervical myelopathy (HCC) Take 1 (one) tablet by mouth every 6 hours as needed 56 tablet 3 Active acetaminophen (Tylenol) 325 MG tablet Take 2 (two) tablets by mouth every 6 hours as needed Maximum allowable Acetaminophen amount = 4 Grams (4000 mg) / 24 hours. 3 Active DULoxetine (Cymbalta) 60 MG capsule Take 1 (one) capsule by mouth at bedtime 4 Active baclofen (Lioresal) 10 MG tabletIndicatio ns:Lumbar spondylosis Take 1 (one) tablet by mouth 3 times daily May cause drowsiness. 90 tablet 11 4 Active buPROPion XL 24hr (Wellbutrin-XL) 150 MG tablet 5 Active pregabalin (Lyrica) 200 MG capsule 5 Active Active Problems Problem Noted Date Diagnosed Date Lumbar spondylosis 12/03/2023 Cervical myelopathy 06/11/2023 Social History Tobacco Use Types Packs/Day Years Used Date Smoking Tobacco: Former Cigarettes Q uit: 04/2023 Smokeless Tobacco: Never Tobacco Cessation:Counseling Given: No Alcohol Use Standard Drinks/Week Comments Not Currently 0 (1 standard drink = 0.6 oz pur e alcohol) AUDIT-C Answer Date Recorded Q1: How often do you have a drink containing alcohol? Never 12/03/2023 Q2: How many drinks containi ng alcohol do you have on a typical day when you are drinking? Patient does not drink Q3: How often do you have si x or more drinks on one occasion? Never 12/03/2023 Overall Financial Resource Strain (CARDIA) Answe r Date Recorded How hard is it for you to pa y for the very basics like food, housing, medical care, and heating? Somewhat hard 12/08/2023 PHQ-2 Answer Date Recorded Patient Health Questionnaire-2 Score 6 05/04/2024 [facility] - Occupational Stress Questionnaire Answer Date Recorded Do you feel stress - tense, restless, nervous, or anxious, or unable to sleep at night because your mind is troubled all the time - these days? To some extent 12/08/2023 Hunger Vital Sign Answer Date Recorded Within the past 12 months, y ou worried that your food would run out before you got the money to buy more. Sometimes true Within the past 12 months, t he food you bought just didn't last and you didn't have money to get more. Never true 03/2024 PRAPARE - Transportation Answer Date Re corded In the past 12 months, has l ack of transportation kept you from medical appointments or from getting medications? No 03/2024 In the past 12 months, has l ack of transportation kept you from meetings, work, or from getting things needed for daily living? Yes 12/08/2023 Housing Stability Vital Sign Answer Souleymane e Recorded In the last 12 months, was t here a time when you were not able to pay the mortgage or rent on time? No 12/08/2023 In the last 12 months, how many places have you lived? 1 12/08/2023 In the last 12 months, was t here a time when you did not have a steady place to sleep or slept in a long-term (including now)? No 12/08/2023 Comments No Sex and Gender Information Value Date Recorded Sex Assigned at Not on file Legal Sex Female 3:04 PM CDT Gender Identity Female 11/28/2024 9:57 AM CDT Sexual Orientation Bisexual 11/28/2024 9: 57 AM CDT Last Filed Vital Signs Vital Sign Reading Time Taken Comments Blood Pressure 123/82 11/28/2024 9:06 AM CDT Pulse 83 11/28/2024 9:06 AM CDT Temperature 36.3 C (97.4 F) 11/28/2024 9:06 AM CDT Respiratory Rate 18 12/08/2023 8:00 AM CDT Oxygen Saturation 96% 11/28/2024 9:06 AM CDT Inhaled Oxygen Concentration 40% 06/11/2023 4 :15 PM REAL TIME TRADER Weight 89.4 kg (197 lb) 11/28/2024 9:06 AM CDT Height 157.5 cm (5' 2) 11/28/2024 9:06 AM CDT Body Mass Index 36.03 11/28/2024 9:06 AM CDT Plan of Treatment Health Maintenance Due Date Last Done Comments COLOGUARD (AGES 45-75) - COLON CA SCREENING 1975 COLON MONITORING 1975 COLONOSCOPY - COLON CA SCREENING 1975 CT COLONOGRAPHY - COLON CA SCREENING 1975 Colorectal Cancer Screening 1975 FIT - COLON CA SCREENING 1975 FLEX SIG - COLON CA SCREENING 1975 MAMMOGRAM 1975 HIV SCREENING 1990 DTAP/TDAP/TD VACCINES (1 - Tdap) 1994 HEPATITIS B VACCINE (1 of 3 - 19+ 3-dose series) 1994 PAP SMEAR 02/06/1996 COVID-19 VACCINE (1 - 2023- season) 2024 DEPRESSION SCREENING 08/02/2024 PNEUMOCOCCAL VACCINE 50+ (1 of 1 - PCV) 2025 ZOSTER VACCINE (1 of 2) 2025 INFLUENZA VACCINE (#1) 2025 SCREENING FOR DIABETES 12/15/2026 , 12/16/2023, 12/13/2023, Additional history exists LIPID TESTING 04/08/2028 04/08/2023 HEPATITIS C SCREENING Completed 04/08/2023 HIB VACCINE Aged Out No longer eligi ble based on patient's age to complete this topic HPV VACCINE Aged Out No longer eligi ble based on patient's age to complete this topic MENINGOCOCCAL (Group B) VACCINE SHARED DECISION-MAKING Aged Out No longer eligible based on patient's age to complete this topic MENINGOCOCCAL GROUPS A/C/Y/W VACCINE Aged Out No longer eligible based on patient's age to complete this topic Medical Devices Implanted Type Area Cold Rolling Coordinator Device Identifier Shelf Expiration Date Model / Serial / Lot Screw 3.5mm 14mm Ma Spne Bone Implanted:Qty : 1 on 06/11/2023 by Branden Johnson MD at [facility] N/A: Spine [employer] [id number] / / Screw 3.5mm 18mm Ma Spne Bone Implanted:Qty : 3 on 06/11/2023 by Branden Johnson MD at [facility] N/A: Spine [employer] [id number] / / Screw 3.5mm 20mm Ma Spne Bone Implanted:Qty : 5 on 06/11/2023 by Branden Johnson MD at [facility] N/A: Spine [employer] [id number] / / Screw 3.5mm 22mm Ma Spne Bone Implanted:Qty : 2 on 06/11/2023 by Branden Johnson MD at [facility] N/A: Spine [employer] [id number] / / Screw 3.5mm 24mm Ma Spne Bone Implanted:Qty : 1 on 06/11/2023 by Branden Johnson MD at [facility] N/A: Spine [employer] [id number] / / Screw Set M6 Spne Oc Upr Thor Infnt Implanted:Qty : 12 on 06/11/2023 by Branden Johnson MD at [facility] N/A: Spine Medtronic Sofamor [employer]ane[employer] Spine [id number] / / Yoshi Spnl 80mm 3.5mm Pcut Implanted:Qty : 2 on 06/11/2023 by Branden Johnson MD at [facility] N/A: Spine [employer] Inc [id number] / / Description:* Graft Bone Grftn Dbm Aspt 5x2.5cm Post - [id number] Implanted:Qty : 1 on 06/11/2023 by Branden Johnson MD at [facility] N/A: Spine [employer] Inc 05/04/2026 [id number] / [id number] / Seal Dural Auto Spr Ext Tip 5ml Implanted:Qty : 1 on 12/03/2023 by Branden Johnson MD at [facility] N/A: Spine Lumbar [employer] 07/01/2025 [facility]-109 / / [id number] Graft Tissue Drgn + Bvn Clgn Mtrx 2x2in Implanted:Qty : 1 on 12/03/2023 by Branden Johnson MD at [facility] N/A: Spine Lumbar [employer] 09/29/2026 [id number] / / [id number] Explanted Type Area Cold Rolling Coordinator Device Identifier Shelf Expiration Date Model / Serial / Lot Seal Dural Auto Spr Ext Tip 5ml Explanted:Qty: 1 on 12/03/2023 at [facility] [employer] 07/01/2025 [facility] / / [id number] Description:user error Procedures Procedure Name Priority Date/Time Associated Diagnosis Comments BASIC METABOLIC PANEL (CALCIUM TOTAL) Routine 12/16/2023 3:59 AM CDT from Last 3 Months or Most Recently Relevant to Health Maintenance Results * (ABNORMAL) BASIC METABOLIC PANEL (CALCIUM TOTAL) (12/16/2023 3:59 AM CDT) [facility] Glucose 94 70 - 105 mg/dL 12/16/2023 11:33 AM CDT [facility] Sodium 137 136 - 145 mmol/L 12/16/2023 11:33 AM CDT [facility] Potassium 5.9(H) 3.5 - 5.1 mmol/L 12/16/2023 11:33 AM CDT [facility] Chloride 106 98 - 107 mmol/L 12/16/2023 11:33 AM CDT [facility] CO2 22 22 - 29 mmol/L 12/16/2023 11:33 AM CDT [facility] Calcium 9.5 8.4 - 10.4 mg/dL 12/16/2023 11:33 AM CDT [facility] Anion Gap 9 6 - 16 mmol/L 12/16/2023 11:33 AM CDT [facility] BUN 17 5.3 - 18.7 mg/dL 12/16/2023 11:33 AM CDT [facility] Creatinine 0.75 0.57 - 1.11 mg/dL 12/16/2023 11:33 AM CDT [facility] eGFR by CKD-EPI >90 >=90 mL/min/1.7 3 m2 12/16/2023 11:33 AM CDT [facility] Blood BLOOD SPECIMEN / Unknown 12/16/2023 3:59 AM CDT 12/16/2023 10:36 AM CDT Alexandra Garcia MD LAB - CHEMISTRY ORDERABLES [facility] al Result [facility] [address] [place] [address] from Last 3 Months or Most Recently Relevant to Health Maintenance Insurance [facility] Advance Directives Documents on File Type Date Recorded Patient Java Grails Developer Expl anation Adv Directive/Living Will/POA 06/21/2023 10:55 AM * Full Code (Latest Code Status on File) Date Activated Date Inactivated Comments 12/03/2023 11:33 AM 12/08/2023 7:54 PM * Full Code Date Activated Date Inactivated Comments 12/03/2023 11:33 AM 12/03/2023 11:33 AM * Full Code Date Activated Date Inactivated Comments 06/20/2023 8:53 AM 07/04/2023 12:35 PM * Full Code Date Activated Date Inactivated Comments 06/11/2023 6:30 PM 06/19/2023 3:31 PM Care Teams Cyber Transport Systems Specialist Relationship Specialty Start Date End Date aR Ruggiero MD [address], [place] [id number] PCP - General Internal Medicine 11/12/23
[2025-03-29 12:00] LABS: Hematocrit 40.3 % (35.0-49.0); Hemoglobin 13.0 g/dL (12.0-15.0); Mean Corpuscular HGB Conc 32.3 g/dL (32-36); Mean Corpuscular Hemoglobin 29.5 pg (27.0-31.0); Mean Corpuscular Volume 91.4 fL (78.0-102.0); Platelet Count Result 363 K/mm3 (150-420); Red Blood Count 4.41 M/mm3 (4.20-5.40); White Blood Count 6.6 K/mm3 (4.8-10.8)
--- NOTE | 2025-03-29 12:00 | ECG_ITS ---
Test Date: 2025-03-29 12:16:38 Measurements Intervals [place] Rate: 78 P: 65 MI: 140 QRS: 68 QRSD: 89 T: 48 QT: 358 QTc: 409 Interpretive Statements SINUS RHYTHM NONSPECIFIC T-WAVE ABNORMALITY- ANTERIOR LEADS BASELINE ARTIFACT- I, II, III, AVR, AVL, AVF, V4-V5 BORDERLINE ECG No previous ECG available for comparison Electronically Signed On 03-29-2025 12:23:35 CDT by Juan Ramon Zhou D.O.
[2025-03-29 12:30] LABS: Alanine Aminotransferase 16 U/L (6-35); Albumin Level 4.6 g/dL (3.5-5.1); Alkaline Phosphatase 92 U/L (38-126); Anion Gap 12 mmol/L (4-12); Aspartate Amino Transferase 20 U/L (14-36); Bilirubin,Total 0.8 mg/dL (0.2-1.3); Blood Urea Nitrogen 12 mg/dL (7-17); Calcium 10.0 mg/dL (8.4-10.2); Carbon Dioxide 25 mmol/L (22-30); Chloride 105 mmol/L (98-107); Cholesterol 244 mg/dL (0-200); Estimated Glomerular Filt Rate > 60; Glucose 98 mg/dL (65-110); HDL Direct 59 mg/dL; Osmolality Calculated 293 mOsm/kg (285-295); Potassium 4.6 mmol/L (3.4-5.0); Sodium 142 mmol/L (137-145); Total Protein 7.6 g/dL (6.3-8.2); Triglycerides 143 mg/dL (<150)
[2025-03-29 12:46] LABS: Free T4 Free Thyroxine 1.21 ng/dL (0.78-2.19)
[2025-03-29 13:00] LABS: Thyroid Stimulating Hormone 2.140 uIU/mL (0.465-4.680)
[2025-03-29 13:25] LABS: Free T3 4.49 pg/mL (2.18-3.98)
== END 2025-03-29 11:35 | disposition home or self-care (01) ==
PROVIDERS: PCP Internal Medicine; Visit Provider Internal Medicine
DX: R53.83 Other fatigue (principal); R00.2 Palpitations
CPT/HCPCS: 36415; 71046; 80053; 80061; 84439; 84443; 84481; 85027; 93005

== ENCOUNTER 2025-04-03 12:51 | Outpatient (CLI) | payer OTHER, SELFPAY ==
--- NOTE | ~2025-04-03 | CT_ITS ---
EXAMINATION: CT lung screening DATE: 04/03/2025 14:08 INDICATION: ABN EKG, HS OF NICOTINE DEPENDENCE TECHNIQUE: Computed tomography (CT) of the chest was performed without intravenous contrast. Additional 3D reconstructions utilizing coronal maximum intensity projection (MIP) were performed. Automated exposure control and iterative reconstruction technique were employed. The dose-length product was 67 .88 mGy-cm. COMPARISON: None FINDINGS: Calcified right upper lobe nodule along with calcified mediastinal lymph nodes consistent with old granulomatous disease. No suspicious pulmonary nodules, pneumonia, pulmonary edema, pleural effusion or pneumothorax. Heart size is normal. No pericardial effusion. Thoracic aorta is normal in caliber. No pathologically enlarged thoracic lymphadenopathy. There are/upper abdomen is unremarkable. Mild thoracic dextrocurvature with moderate to severe lower thoracic predominant spondylosis. IMPRESSION: 1. . Lung-RADS category 1: Negative. Continue annual screening with noncontrast low-dose chest CT in 12 months. Reviewed, dictated and finalized at location A.
[2025-04-03 13:03] LABS: Add Urine Microscopic? YES; Appearance Urine Clear (Clear); Glucose Urine UA Negative (Negative); Leukocyte Esterase Ur 1+ (Negative); Nitrate Urine Negative (Negative); Specific Grav Ur 1.015 (1.010-1.020)
--- OUTSIDE RECORDS SUMMARY | 2025-04-03 13:05 | XMS_ITS | Clinical Summary ---
Author Organization [facility] Address [address] [place] [address] Care Team Providers Care Band Straightener Name Role Phone Unavailable Primary Care Provider [...] Tobacco: Never Tobacco Cessation:Counseling Given: Not Answered [facility] Utilities Answer Date Recorded In the past 12 months has [facility] electric, gas, oil, or water company [...] often do you attend chur ch or buddhism services? More than 4 times per year 12/09/2023 Do you belong to any clubs o r organizations such as buddhism groups, unions, fraternal or athletic groups, or [...] and heating? Not hard at all 12/09/2023 [facility] - Occupational Stress Questionnaire Answer Date Recorded [...]
--- OUTSIDE RECORDS SUMMARY | 2025-04-03 13:05 | XMS_ITS | Clinical Summary ---
Author Organization [facility] Address [address] [address] Care Team Providers Care Cash Teller Name Role Phone Ra Ruggiero MD Primary Care Provider [phone] Source Comments [facility] [employer],non-owned Affiliates and Associated Physician Practices is amultiple site organization consisting of ambulatory clinics and hospital sitesin [place], [place], [place] and [place]. This disclosure is being madepursuant to the Care Everywhere program and may not contain all information available regarding this patient. Last updated 18.[facility] Allergies No known active allergies Medications * [...] Recorded Patient Health Questionnaire-2 Score 6 05/04/2024 [facility] - Occupational Stress [...] place to sleep or slept in a chcf (including now)? No 12/08/2023 Comments No Sex [...] Oxygen Concentration 40% 06/11/2023 4 :15 PM NEEDLE LEADER Weight 89.4 kg (197 lb) 11/28/2024 9:06 [...] (#1) 2025 SCREENING FOR DIABETES 12/15/2026 , 12/13/2023, 12/09/2023, Additional history exists LIPID TESTING 04/08/2028 04/08/2023 [...] this topic Medical Devices Implanted Type Area Machine Feed Operator Device Identifier Shelf Expiration Date Model / Serial / Lot Screw 3.5mm 14mm Ma Spne Bone Implanted:Qty : 1 on 06/11/2023 by Branden Johnson MD at [facility] N/A: Spine Medtronic Inc [id number] / / Screw 3.5mm 18mm Ma Spne Bone Implanted:Qty : 3 on 06/11/2023 by Branden Johnson MD at [facility] N/A: Spine Med[employer]onic Inc [id number] / / Screw 3.5mm 20mm Ma Spne Bone Implanted:Qty : 5 on 06/11/2023 by Branden Johnson MD at [facility] N/A: Spine Medtronic Inc [id number] / / Screw 3.5mm 22mm Ma Spne Bone Implanted:Qty : 2 on 06/11/2023 by Branden Johnson MD at [facility] N/A: Spine Medtronic Inc [id number] / / Screw 3.5mm 24mm Ma Spne Bone Implanted:Qty : 1 on 06/11/2023 by Branden Johnson MD at [facility] N/A: Spine Med[employer]onic Inc [id number] / / Screw Set M6 Spne Oc Upr Thor Infnt Implanted:Qty : 12 on 06/11/2023 by Branden Johnson MD at [facility] N/A: Spine Medtronic Sofamor Danek Spine [id number] / / Yoshi Spnl 80mm 3.5mm Pcut Implanted:Qty : 2 on 06/11/2023 by Branden Johnson MD at [facility] N/A: Spine Medtronic Inc [id number] / / Description:* Graft Bone Grftn Dbm Aspt 5x2.5cm Post - [id number] Implanted:Qty : 1 on 06/11/2023 by Branden Johnson MD at [facility] N/A: Spine Medtronic Inc 05/04/2026 [id number] / [id number] / Seal Dural Auto Spr Ext Tip 5ml Implanted:Qty : 1 on 12/03/2023 by Branden Johnson MD at [facility] N/A: Spine Lumbar Nina Craniomaxillofacial 07/01/2025 [facility] / / [id number] Graft Tissue Drgn + Bvn Clgn Mtrx 2x2in Implanted:Qty : 1 on 12/03/2023 by Branden Johnson MD at [facility] N/A: Spine Lumbar Integra Neurosciences 09/29/2026 [id number] / / [id number] Explanted Type Area Machine Feed Operator Device Identifier Shelf Expiration Date Model / Serial / Lot Seal Dural Auto Spr Ext Tip 5ml Explanted:Qty: 1 on 12/03/2023 at [facility] Inna Craniomaxillofacial 07/01/2025 [facility] / / [id number] Description:user error Procedures Procedure Name Priority Date/Time Associated Diagnosis Comments BASIC METABOLIC PANEL (CALCIUM TOTAL) Routine 12/16/2023 3:59 AM CDT from Last 3 Months or Most Recently Relevant to Health Maintenance Results * (ABNORMAL) BASIC METABOLIC PANEL (CALCIUM TOTAL) (12/16/2023 3:59 AM CDT) [facility] Glucose 94 70 - 105 mg/dL 12/16/2023 11:33 AM CDT [facility] Sodium 137 136 - 145 mmol/L 12/16/2023 11:33 AM CDT [facility] Potassium 5.9(H) 3.5 - 5.1 mmol/L 12/16/2023 11:33 AM CDT [facility] Chloride 106 98 - 107 mmol/L 12/16/2023 11:33 AM CDT [facility] CO2 22 22 - 29 mmol/L 12/16/2023 11:33 AM CDT [facility] Calcium 9.5 8.4 - 10.4 mg/dL 12/16/2023 11:33 AM CDT [facility] Anion Gap 9 6 - 16 mmol/L 12/16/2023 11:33 AM CDT [facility] BUN 17 5.3 - 18.7 mg/dL 12/16/2023 11:33 AM CDT [facility] Creatinine 0.75 0.57 - 1.11 mg/dL 12/16/2023 11:33 AM CDT [facility] eGFR by CKD-EPI >90 >=90 mL/min/1.7 3 m2 12/16/2023 11:33 AM CDT [facility] Blood BLOOD SPECIMEN / Unknown 12/16/2023 3:59 AM CDT 12/16/2023 10:36 AM CDT Alexandra Garcia MD LAB - CHEMISTRY ORDERABLES [facility] al Result [facility] [address] [place] [address] from Last 3 Months or Most Recently Relevant to Health Maintenance Insurance [facility] Advance Directives Documents on File Type Date Recorded 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
--- NOTE | 2025-04-03 13:30 | ECHO_ITS ---
Patient Info Name: Erika Liu Age: 50 years : 1975 Gender: Female Ht: 62 in Wt: 196 lbs BSA: 2.01 m2 HR: 83 bpm BP: 134 / 95 mmHg Technical Quality: Good Exam Date: 04/03/2025 1:19 PM Patient Status: O Admit Date: 04/03/2025 Exam Type: CA echo doppler color flow Complete two-dimensional, color flow and Doppler transthoracic echocardiogram is performed. Staff Referring Physician: Ra Ruggiero MD Saw Cleaner: Claudette Green Attending Provider: Ra Ruggiero MD Summary 1. Complete two-dimensional, color flow and Doppler transthoracic echocardiogram is performed. 2. Left ventricular chamber dimension is normal. 3. Left ventricular systolic function is normal, estimated at 60-65. 4. The left ventricular diastolic function is normal. 5. E/e' 8 is minimally elevated. 6. There is trace tricuspid valve regurgitation. Left Ventricle Left ventricular chamber dimension is normal. Left ventricular systolic function is normal, estimated at 60-65. The left ventricular diastolic function is normal. E/e' 8 is minimally elevated. Right Ventricle Right ventricular chamber dimension is normal. Right ventricular systolic function is normal. Left Atria Left atrial chamber dimension is normal. Right Atria Right atrial chamber dimension is normal. Aortic Valve The aortic valve is trileaflet. There is no aortic valve stenosis. There is no aortic valve regurgitation. Pulmonic Valve There is no pulmonic regurgitation. Mitral Valve There is no mitral valve stenosis. There is no mitral valve regurgitation. Tricuspid Valve There is trace tricuspid valve regurgitation. RVSP is not measured due to an inadequate TR jet. Pericardium/Pleural There is no pericardial effusion. Inferior Vena Cava Normal inferior vena cava with >50% collapse upon inspiration consistent with normal right atrial pressure, 5 mmHg. Aorta The aortic root size at the sinus of Valsalva is normal. Left Ventricular Outflow Tract Name Value Normal LVOT 2D LVOT Diameter 1.6 cm LVOT Doppler LVOT Peak Velocity 115 cm/s LVOT Peak Gradient 5 mmHg LVOT Mean Gradient 2 mmHg LVOT VTI 27 cm LVOT VTI/AV VTI Ratio 0.7 LVOT Stroke Volume 54 ml LVOT CO 3.5 l/min LVOT CI 1.7 l/min/m2 Pulmonic Valve Name Value Normal RVOT Doppler RVOT Peak Velocity 68 cm/s RVOT Peak Gradient 2 mmHg PV Doppler PV Peak Velocity 103 cm/s PV Peak Gradient 4 mmHg Mitral Valve Name Value Normal MV Diastolic Function MV E Peak Velocity 79 cm/s MV A Peak Velocity 68 cm/s MV E/A 1.2 MV Decel Time (PW) 178 ms MV Annular TDI MV E/e' (Septal) 9.0 MV E/e' (Lateral) 7.7 MV E/e' (Average) 8.3 Tricuspid Valve Name Value Normal Estimated PAP/RSVP RA Pressure 5 mmHg <=5 Aortic Valve Name Value Normal AV Doppler AV Peak Velocity 181 cm/s AV Peak Gradient 12 mmHg AV Mean Gradient 7 mmHg AV VTI 36 cm AV Area (Cont Eq VTI) 1.5 cm2 >=3.0 AV Area (Cont Eq Silverio) 1.3 cm2 AV DI (Silverio) 0.64 AV Regurgitation 2D LVOT Area 2.0 cm2 Ventricles Name Value Normal LV Dimensions 2D/MM IVS Diastolic Thickness (2D) 1.0 cm 0.6-1.0 LVID Diastole (2D) 4.8 cm 3.8-5.2 LVIW Diastolic Thickness (2D) 0.8 cm 0.6-0.9 LVID Systole (2D) 2.9 cm 2.2-3.5 LVOT Diameter 1.6 cm LV Mass (2D Cubed) 145.60 g 67.00-162.00 LV Mass Index (2D Cubed) 72 g/m2 43-95 Relative Wall Thickness (2D) 0.33 <=0.42 LV Fractional Shortening/Ejection Fraction 2D/MM LV Fractional Shortening (2D) 39 % 27-45 LV EF (2D Teichholz) 69 % LV Diastolic Volume (4C MOD) 72 ml LV EF (4C MOD) 57 % LV Diastolic Volume (2C MOD) 72 ml LV EF (2C MOD) 58 % LV Diastolic Volume (BP MOD) 73 ml 46-106 LV Diastolic Volume Index (BP MOD) 36 ml/m2 29-61 LV Systolic Volume (BP MOD) 31 ml 14-42 LV Systolic Volume Index (BP MOD) 15 ml/m2 8-24 LV EF (BP MOD) 58 % 54-74 LV Diastolic Length (4C) 7.3 cm LV Systolic Length (4C) 6.0 cm LV Stroke Volume (4C MOD) 41 ml Atria Name Value Normal LA Dimensions LA Volume (4C A-L) 33 ml LA Volume (BP A-L) 42 ml RA Dimensions RA Systolic Major Union Length (4C) 3.9 cm 2.2-2.8 RA Area (4C) 10.2 cm2 <=18.0 Report Signatures
== END 2025-04-03 12:52 | disposition home or self-care (01) ==
LOC: CHSIMG 12:55
PROVIDERS: PCP Internal Medicine; Visit Provider Internal Medicine
DX: R53.83 Other fatigue (principal); R00.2 Palpitations; Z12.2 Encounter for screening for malignant neoplasm of respiratory organs; Z87.891 Personal history of nicotine dependence; R94.31 Abnormal electrocardiogram [ECG] [EKG]
CPT/HCPCS: 71271; 81001; 93306

== ENCOUNTER 2025-04-20 14:52 | Outpatient (CLI) | payer OTHER, SELFPAY ==
--- NOTE | ~2025-04-20 | MM_ITS ---
EXAMINATION: MM screening paulo BI w shiv HISTORY: Screening TECHNIQUE: Craniocaudal and mediolateral oblique 3-D tomosynthesis images were obtained and synthetic 2-D images were generated. CAD analysis was submitted and interpreted. COMPARISON: No prior mammogram is available for comparison at this institution. BREAST PARENCHYMAL COMPOSITION: There are scattered areas of fibroglandular density. FINDINGS: No suspicious calcifications or masses. Focal asymmetry in the upper-outer quadrant of the right breast, middle to posterior depth. Focal asymmetry in the upper-outer quadrant of the left breast, middle to posterior depth. In addition, there is an asymmetry in the medial left breast, middle depth, seen in the left CC projection. In addition, there is an asymmetry in the lower left breast, posterior depth, seen in the left MLO projection. IMPRESSION: 1. Focal asymmetry in the upper-outer quadrant of the right breast, middle to posterior depth. The study is incomplete. A diagnostic mammogram and a diagnostic ultrasound are recommended. 2. Focal asymmetry in the upper-outer quadrant of the left breast, middle to posterior depth. In addition, there is an asymmetry in the medial left breast, middle depth, seen in the left CC projection. In addition, there is an asymmetry in the lower left breast, posterior depth, seen in the left MLO projection. The study is incomplete. A diagnostic mammogram and a diagnostic ultrasound are recommended. BI-RADS 0: Incomplete-Need additional imaging evaluation. Reviewed, dictated and finalized at location Q. IMPRESSION: 1. Focal asymmetry in the upper-outer quadrant of the right breast, middle to p osterior depth. The study is incomplete. A diagnostic mammogram and a diagnosti c ultrasound are recommended. 2. Focal asymmetry in the upper-outer quadrant of the left breast, middle to po sterior depth. In addition, there is an asymmetry in the medial left breast, mi ddle depth, seen in the left CC projection. In addition, there is an asymmetry in the lower left breast, posterior depth, seen in the left MLO projection. The study is incomplete. A diagnostic mammogram and a diagnostic ultrasound are re commended. BI-RADS 0: Incomplete-Need additional imaging evaluation.
--- OUTSIDE RECORDS SUMMARY | 2025-04-20 14:55 | XMS_ITS | Clinical Summary ---
Author Organization [facility] Address [address] [place] [address] Care Team Providers Care Insurance Sales Supervisor Name Role Phone Ra Ruggiero MD Primary Care Provider Source Comments [facility] [employer],non-owned Affiliates and Associated Physician Practices is amultiple site organization consisting of ambulatory clinics and hospital sitesin [place], [place], [place] and [place]. This disclosure is being madepursuant to the Care Everywhere program and may not contain all information available regarding this patient. Last updated 18.[facility] [employer] Allergies No known active allergies Medications * [...] Recorded Patient Health Questionnaire-2 Score 6 05/04/2024 [facility] - Occupational [...] place to sleep or slept in a intermediate (including now)? No 12/08/2023 Comments No Sex [...] Oxygen Concentration 40% 06/11/2023 4 :15 PM GREEN MARKETER Weight 89.4 kg (197 lb) 11/28/2024 9:06 [...] 19+ 3-dose series) 1994 PAP SMEAR 02/06/1996 DEPRESSION SCREENING 08/02/2024 PNEUMOCOCCAL VACCINE 50+ (1 of 1 - PCV) 2025 ZOSTER VACCINE (1 of 2) 2025 COVID-19 VACCINE (1 - 2023- season) 2025 INFLUENZA VACCINE (#1) 2025 SCREENING FOR [...] this topic Medical Devices Implanted Type Area Commercial Marketing Specialist Device Identifier Shelf Expiration Date Model / Serial / Lot Screw 3.5mm 14mm Ma Spne Bone Implanted:Qty : 1 on 06/11/2023 by Branden Johnson MD at [facility] N/A: Spine Medtronic Inc [id number] / / Screw 3.5mm 18mm Ma Spne Bone Implanted:Qty : 3 on 06/11/2023 by Branden Johnson MD at [facility] N/A: Spine Med[employer]onic Inc [id number] / / Screw 3.5mm 20mm Ma Spne Bone Implanted:Qty : 5 on 06/11/2023 by Branden Johnson MD at [facility] N/A: Spine Med[employer]onic Inc [id number] / / Screw 3.5mm 22mm Ma Spne Bone Implanted:Qty : 2 on 06/11/2023 by Branden Johnson MD at [facility] N/A: Spine Medtronic Inc [id number] / / Screw 3.5mm 24mm Ma Spne Bone Implanted:Qty : 1 on 06/11/2023 by Branden Johnson MD at [facility] N/A: Spine Med[employer]onic Inc [id number] / / Screw Set M6 Spne Oc Upr Thor Infnt Implanted:Qty : 12 on 06/11/2023 by Branden Johnson MD at [facility] N/A: Spine Medtronic Sofamor Danek Spine [id number] / / Yoshi Spnl 80mm 3.5mm Pcut Implanted:Qty : 2 on 06/11/2023 by Branden Johnson MD at [facility] N/A: Spine Medtronic Inc [id number] / / Description:* Graft Bone Grftn Dbm Aspt 5x2.5cm Post - [id number] Implanted:Qty : 1 on 06/11/2023 by Branden Johnson MD at [facility] N/A: Spine Medtronic Inc 05/04/2026 [id number] / [id number] / Seal Dural Auto Spr Ext Tip 5ml Implanted:Qty : 1 on 12/03/2023 by Branden Johnson MD at [facility] N/A: Spine Lumbar [place] Craniomaxillofacial 07/01/[address] [facility] / / [id number] Graft Tissue Drgn + Bvn Clgn Mtrx 2x2in Implanted:Qty : 1 on 12/03/2023 by Branden Johnson MD at [facility] N/A: Spine Lumbar Integra Neurosciences 09/29/2026 [id number] / / [id number] Explanted Type Area Commercial Marketing Specialist Device Identifier Shelf Expiration Date Model / Serial / Lot Seal Dural Auto Spr Ext Tip 5ml Explanted:Qty: 1 on 12/03/2023 at [facility] Inna Craniomaxillofacial 07/01/[address] [facility] / / [id number] Description:user error Procedures Procedure Name Priority Date/Time Associated Diagnosis Comments BASIC METABOLIC PANEL (CALCIUM TOTAL) Routine 12/16/2023 3:59 AM CDT from Last 3 Months or Most Recently Relevant to Health Maintenance Results * (ABNORMAL) BASIC METABOLIC PANEL (CALCIUM TOTAL) (12/16/2023 3:59 AM CDT) [facility] Glucose 94 70 - 105 mg/dL 12/16/2023 11:33 AM CDT [facility] Sodium 137 136 - 145 mmol/L 12/16/2023 11:33 AM CDT [facility] Potassium 5.9(H) 3.5 - 5.1 mmol/L 12/16/2023 11:33 AM CDT [facility] Chloride 106 98 - 107 mmol/L 12/16/2023 11:33 AM CDT [facility] CO2 22 22 - 29 mmol/L 12/16/2023 11:33 AM CDT [facility] Calcium 9.5 8.4 - 10.4 mg/dL 12/16/2023 11:33 AM CDT [facility] Anion Gap 9 6 - 16 mmol/L 12/16/2023 11:33 AM CDT [facility] BUN 17 5.3 - 18.7 mg/dL 12/16/2023 11:33 AM CDT [facility] Creatinine 0.75 0.57 - 1.11 mg/dL 12/16/2023 11:33 AM CDT [facility] eGFR by CKD-EPI >90 >=90 mL/min/1.7 3 m2 12/16/2023 11:33 AM CDT [facility] Blood BLOOD SPECIMEN / Unknown 12/16/2023 3:59 AM CDT 12/16/2023 10:36 AM CDT Alexandra Garcia MD LAB - CHEMISTRY ORDERABLES [facility] al Result [facility] [address] [place] [address] from Last 3 Months or Most Recently Relevant to Health Maintenance Insurance [facility] Advance Directives Documents on File Type Date Recorded Patient Manager Managed Care Expl anation Adv Directive/Living Will/POA 06/21/2023 10:55 [...] 6:30 PM 06/19/2023 3:31 PM Care Teams Insurance Sales Supervisor Relationship Specialty Start Date End Date Ra Ruggiero MD [address] [place], [place] [id number] PCP - General Internal Medicine 11/12/23
== END 2025-04-20 14:53 | disposition home or self-care (01) ==
LOC: CHSIMG 14:53
PROVIDERS: PCP Internal Medicine; Visit Provider Internal Medicine
DX: R92.2 Inconclusive mammogram (principal); R92.8 Other abnormal and inconclusive findings on diagnostic imaging of breast
CPT/HCPCS: 77063; 77067

== ENCOUNTER 2025-05-15 09:50 | Outpatient (CLI) | payer OTHER, SELFPAY ==
--- NOTE | ~2025-05-15 | MMUS_ITS ---
EXAMINATION: MM diagnostic paulo BI w shiv, US breast BI limited HISTORY: Inconclusive mammogram TECHNIQUE: Additional 3-D tomosynthesis images of both breasts were performed and synthetic 2-D images were generated. CAD analysis was submitted and interpreted. High resolution bilateral breasts ultrasound was performed. COMPARISON: Mammogram 04/20/2025 BREAST PARENCHYMAL COMPOSITION: The breasts are heterogeneously dense, which may obscure small masses. FINDINGS: MAMMOGRAPHIC FINDINGS: Redemonstration of the focal asymmetry upper outer quadrant of the right breast, posterior depth. The finding is probably benign Redemonstration of the focal asymmetry in the upper outer quadrant of the left breast, middle to posterior depth. The finding is probably benign Redemonstration of the asymmetry in the medial left breast, middle depth. The finding is probably benign ULTRASOUND: There is a 0.8 x 0.7 x 0.6 cm hypoechoic mass in the right breast 11:00 position 5 cm from the nipple middle depth. The finding is wider than tall. Margins are partially circumscribed. No internal color Doppler flow. No posterior acoustic shadowing. The finding is probably benign. No sonographic abnormality identified in the area of concern in the left breast. IMPRESSION: 1. Probably benign findings in both breasts. A bilateral diagnostic mammogram and bilateral diagnostic breast ultrasound in 6 months is recommended. BI-RADS 3-Probably benign-Short interval follow-up suggested. Reviewed, dictated and finalized at location Q. IMPRESSION: 1. Probably benign findings in both breasts. A bilateral diagnostic mammogram a nd bilateral diagnostic breast ultrasound in 6 months is recommended. BI-RADS 3-Probably benign-Short interval follow-up suggested.
--- OUTSIDE RECORDS SUMMARY | 2025-05-15 11:19 | XMS_ITS | Clinical Summary ---
Author Organization [facility] Address [address] [place] [address] Care Team Providers Care Vaccinator Name Role Phone Unavailable Primary Care Provider [...] Tobacco: Never Tobacco Cessation:Counseling Given: Not Answered [facility] Utilities Answer Date Recorded In the past 12 months has [facility] electric, gas, oil, or water [...] often do you attend chur ch or oriental orthodox services? More than 4 times per year 12/09/2023 Do you belong to any clubs o r organizations such as mandaeism groups, unions, fraternal or athletic groups, or [...] and heating? Not hard at all 12/09/2023 [facility]ational Stress Questionnaire Answer Date Recorded [...]
--- OUTSIDE RECORDS SUMMARY | 2025-05-15 11:19 | XMS_ITS | Clinical Summary ---
Author Organization [facility] Address [address] [place] [address] Care Team Providers Care Driver Utility Worker Name Role Phone aR Ruggiero MD Primary Care Provider [phone] Source Comments [facility] [employer],non-owned Affiliates and Associated Physician Practices is amultiple site organization consisting of ambulatory clinics and hospital sitesin [place], [place], [place] and [place]. This disclosure is being madepursuant to the Care Everywhere program and may not contain all information available regarding this patient. Last updated 18.[facility] [employer] Allergies No known active allergies Medications * [...] Recorded Patient Health Questionnaire-2 Score 6 05/04/2024 [facility] - Occupational Stress [...] place to sleep or slept in a detention (including now)? No 12/08/2023 Comments No Sex [...] Oxygen Concentration 40% 06/11/2023 4 :15 PM HOSPICE PHYSICIAN Weight 89.4 kg (197 lb) 11/28/2024 9:06 [...] this topic Medical Devices Implanted Type Area Manager Process Excellence Device Identifier Shelf Expiration Date Model / Serial / Lot Screw 3.5mm 14mm Ma Spne Bone Implanted:Qty : 1 on 06/11/2023 by Branden Johnson MD at [facility] N/A: Spine Med[employer]onic Inc [id number] / / Screw 3.5mm 18mm Ma Spne Bone Implanted:Qty : 3 on 06/11/2023 by Branden Johnson MD at [facility] N/A: Spine Med[employer] Inc [id number] / / Screw 3.5mm 20mm Ma Spne Bone Implanted:Qty : 5 on 06/11/2023 by Branden Johnson MD at [facility] N/A: Spine Med[employer]onic Inc [id number] / / Screw 3.5mm 22mm Ma Spne Bone Implanted:Qty : 2 on 06/11/2023 by Branden Johnson MD at [facility] N/A: Spine Medtronic Inc [id number] / / Screw 3.5mm 24mm Ma Spne Bone Implanted:Qty : 1 on 06/11/2023 by Branden Johnson MD at [facility] N/A: Spine Med[employer]onic Inc [id number] / / Screw Set M6 Spne Oc Upr Thor Infnt Implanted:Qty : 12 on 06/11/2023 by Branden Johnson MD at [facility] N/A: Spine Medtronic Sofamor [place]anek Spine [id number] / / Yoshi Spnl 80mm 3.5mm Pcut Implanted:Qty : 2 on 06/11/2023 by Branden Johnson MD at [facility] N/A: Spine Med[employer]onic Inc [id number] / / Description:* Graft Bone Grftn Dbm Aspt 5x2.5cm Post - [id number] Implanted:Qty : 1 on 06/11/2023 by Branden Johnson MD at [facility] N/A: Spine Medtronic Inc 05/04/2026 [id number] / [id number] / Seal Dural Auto Spr Ext Tip 5ml Implanted:Qty : 1 on 12/03/2023 by Branden Johnson MD at [facility] N/A: Spine Lumbar [place] Craniomaxillofacial 07/01/2025 [facility] / / [id number] Graft Tissue Drgn + Bvn Clgn Mtrx 2x2in Implanted:Qty : 1 on 12/03/2023 by Branden Johnson MD at [facility] N/A: Spine Lumbar Integra Neurosciences 09/29/2026 [id number] / / [id number] Explanted Type Area Manager Process Excellence Device Identifier Shelf Expiration Date Model / Serial / Lot Seal Dural Auto Spr Ext Tip 5ml Explanted:Qty: 1 on 12/03/2023 at [facility] Inna Craniomaxillofacial 07/01/2025 [facility] / / [id number] Description:user error Procedures Procedure Name Priority Date/Time Associated Diagnosis Comments BASIC METABOLIC PANEL (CALCIUM TOTAL) Routine 12/16/2023 3:59 AM CDT from Last 3 Months or Most Recently Relevant to Health Maintenance Results * (ABNORMAL) BASIC METABOLIC PANEL (CALCIUM TOTAL) (12/16/2023 3:59 AM CDT) [facility] Glucose 94 70 - 105 mg/dL 12/16/2023 11:33 AM CDT [facility] Sodium 137 136 - 145 mmol/L 12/16/2023 11:33 AM CDT [facility] Potassium 5.9(H) 3.5 - 5.1 mmol/L 12/16/2023 11:33 AM CDT [facility] Chloride 106 98 - 107 mmol/L 12/16/2023 11:33 AM CDT [facility] CO2 22 22 - 29 mmol/L 12/16/2023 11:33 AM CDT [facility] Calcium 9.5 8.4 - 10.4 mg/dL 12/16/2023 11:33 AM CDT [facility] Anion Gap 9 6 - 16 mmol/L 12/16/2023 11:33 AM CDT [facility] BUN 17 5.3 - 18.7 mg/dL 12/16/2023 11:33 AM CDT [facility] Creatinine 0.75 0.57 - 1.11 mg/dL 12/16/2023 11:33 AM CDT [facility] eGFR by CKD-EPI >90 >=90 mL/min/1.7 3 m2 12/16/2023 11:33 AM CDT [facility] Blood BLOOD SPECIMEN / Unknown 12/16/2023 3:59 AM CDT 12/16/2023 10:36 AM CDT Alexandra Garcia MD LAB - CHEMISTRY ORDERABLES [facility] al Result [facility] [address] [place] [address] from Last 3 Months or Most Recently Relevant to Health Maintenance Insurance [facility] Advance Directives Documents on File Type Date Recorded Patient Digital Campaign Specialist Expl anation Adv Directive/Living Will/POA 06/21/2023 10:55 [...] 6:30 PM 06/19/2023 3:31 PM Care Teams Driver Utility Worker Relationship Specialty Start Date End Date Ra Ruggiero MD [address] [place], [place] [id number] PCP - General Internal Medicine 11/12/23
== END 2025-05-15 09:51 | disposition home or self-care (01) ==
PROVIDERS: PCP Internal Medicine; Visit Provider Internal Medicine
DX: R92.8 Other abnormal and inconclusive findings on diagnostic imaging of breast (principal)
CPT/HCPCS: 76642; 77062; 77066; G0279

== ENCOUNTER 2025-06-18 08:20 | Outpatient (CLI) | payer OTHER, SELFPAY ==
--- NOTE | 2025-06-18 08:24 | EST_ITS ---
Patient Info Name: Erika Liu Age: 50 years : 1975 Gender: Female Ht: 62 in Wt: 196 lbs BSA: 2.01 m2 HR: 74 bpm BP: 114 / 73 mmHg Heart Rhythm: Sinus Rhythm Technical Quality: Good Exam Date: 06/18/2025 8:24 AM Patient Status: O Admit Date: 06/18/2025 Exam Type: CA stress yohana w NM A regadenoson stress test was performed. Staff Referring Physician: Juan Ramon Zhou DO Attending Provider: Juan Ramon Zhou DO Summary 1. 1. Negative lexiscan stress test for ischemic ST changes by ECG criteria. 2. 2. Stable hemodynamics throughout the test. 3. 3. Nuclear scan to follow and will be reported separately. Please correlate with it. History/Risk Factors Dyslipidemia: Yes Protocol: LEXISCAN Stress ECG Details Stage: REST Duration (min): 1 min : 22 sec HR (bpm): 75 SBP (mmHg): 114 DBP (mmHg): 73 Stage: REST Duration (min): 3 min : 52 sec HR (bpm): 85 SBP (mmHg): 114 DBP (mmHg): 73 Stage: STAGE 1 Duration (min): 0 min : 16 sec HR (bpm): 89 SBP (mmHg): 114 DBP (mmHg): 73 Stage: RECOVERY Duration (min): 0 min : 43 sec HR (bpm): 89 SBP (mmHg): 114 DBP (mmHg): 73 Stage: RECOVERY Duration (min): 1 min : 43 sec HR (bpm): 89 SBP (mmHg): 104 DBP (mmHg): 72 Stage: RECOVERY Duration (min): 2 min : 43 sec HR (bpm): 90 SBP (mmHg): 105 DBP (mmHg): 71 Stage: RECOVERY Duration (min): 3 min : 43 sec HR (bpm): 87 SBP (mmHg): 108 DBP (mmHg): 71 Stage: RECOVERY Duration (min): 4 min : 43 sec HR (bpm): 88 SBP (mmHg): 113 DBP (mmHg): 71 Stage: RECOVERY Duration (min): 5 min : 43 sec HR (bpm): 82 SBP (mmHg): 119 DBP (mmHg): 72 Stage: RECOVERY Duration (min): 6 min : 17 sec HR (bpm): 82 SBP (mmHg): 119 DBP (mmHg): 72 Rest HR: 85 bpm Peak HR: 96 bpm Rest Sys BP: 114 mmHg Peak Sys BP: 119 mmHg Max Pred HR: 170 bpm % Max Pred HR: 56 % Target HR: 145 bpm Max RPP: 11,424 bpm*mmHg BP Response: Normal blood pressure response Termination Reason: Completed Protocol Cardiac Symptoms: None Total Time: 0 min : 16 sec Rest Ballesteros BP: 73 mmHg Peak Ballesteros BP: 72 mmHg Total Dose: 0.4 mg Resting ECG Sinus rhythm with nonspecific T-wave abnormality. Stress ECG No abnormal ST/T wave changes. Arrhythmias None. Report Signatures
--- NOTE | 2025-06-18 14:27 | WPDCARIOSTRE ---
Nuclear Stress Test INDICATIONS Indications: Chest pain PROCEDURE Procedure Performed: Myocardial Perf Spect-Multi Procedure: Patient underwent a lexiscan stress test and immediately was injected with 32.9 mCi of cardiolyte. Multiple tomographic images were obtained. These are of good quality. There is a large size, moderate intensity anterior perfusion defect with stress imaging. A separate resting images were obtained after patient was injected with 10.5 mCi of cardiolyte. Multiple tomographic images were obtained. These are of good quality. There is a small size, mild intensity anterior perfusion defect with rest imaging. CONCLUSION Conclusion: 1. Abnormal myocardial perfusion imaging demonstrating partial ischemia and infarct of anterior ischemia. 2. Left ventriculogram demonstrates normal measured ejection fractioin of 71% with no wall motion abnormalities. 3. TID score 1.22 is borderline abnormal.
== END 2025-06-18 08:21 | disposition home or self-care (01) ==
PROVIDERS: PCP Internal Medicine; Visit Provider Internal Medicine Cardiovascular Disease
DX: R07.9 Chest pain, unspecified (principal); R94.39 Abnormal result of other cardiovascular function study
CPT/HCPCS: 78452; 93017; A9502; J2785

== ENCOUNTER 2025-07-09 01:28 | Day surgery (SDC) | payer OTHER, SELFPAY ==
[2025-07-06 12:21] VITALS: BMI 35.9
[2025-07-09] VITALS (17 sets, daily range): BP systolic 99–151; BP diastolic 53–94; PULSE 70–88; RESP 12–19; TEMP 36.6; O2SAT 94–100; BMI 35.0
--- OUTSIDE RECORDS SUMMARY | 2025-07-09 01:32 | XMS_ITS | Clinical Summary ---
Author Organization [facility] Address [address] [place] [address] Care Team Providers Care Tool Clerk Name Role Phone Ra Ruggiero MD Primary Care Provider [phone] Source Comments [facility] [employer],non-owned Affiliates and Associated Physician Practices is amultiple site organization consisting of ambulatory clinics and hospital sitesin [place], [place], [place] and [place]. This disclosure is being madepursuant to the Care Everywhere program and may not contain all information available regarding this patient. Last updated 18.[facility] Allergies No known active allergies Medications * [...] Years Used Date Smoking Tobacco: Former Cigarettes 0 Q uit: 04/2023 Smokeless Tobacco: Never Tobacco [...] Recorded Patient Health Questionnaire-2 Score 6 05/04/2024 [facility] ional [facility] - [...] place to sleep or slept in a custodial (including now)? No 12/08/2023 Comments No Sex [...] Oxygen Concentration 40% 06/11/2023 4 :15 PM PUMPMAN Weight 89.4 kg (197 lb) 11/28/2024 9:06 [...] FLEX SIG - COLON CA SCREENING 1975 LIPID TESTING 1975 MAMMOGRAM 1975 HIV SCREENING 1990 HEPATITIS C SCREENING 01/31/1993 DTAP/TDAP/TD VACCINES (1 - Tdap) 1994 HEPATITIS B VACCINE (1 of 3 - 19+ 3-dose series) 1994 Cervical Cancer Screening 02/06/1996 PAP SMEAR 02/06/1996 PAP with HPV 2005 DEPRESSION SCREENING 08/02/2024 PNEUMOCOCCAL VACCINE 50+ (1 of 1 - PCV) 2025 ZOSTER VACCINE (1 of 2) 2025 COVID-19 VACCINE (1 - 2024- season) 2025 INFLUENZA VACCINE (#1) 2025 SCREENING FOR DIABETES 12/15/2026 , 12/13/2023, 12/09/2023, Additional history exists HIB VACCINE Aged Out No longer eligi [...] this topic Medical Devices Implanted Type Area Volumetric Weigher Device Identifier Shelf Expiration Date Model / Serial / Lot Screw 3.5mm 14mm Ma Spne Bone Implanted:Qty : 1 on 06/11/2023 by Branden Johnson MD at [facility] N/A: Spine Medtronic Inc [id number] / / Screw 3.5mm 18mm Ma Spne Bone Implanted:Qty : 3 on 06/11/2023 by Branden Johnson MD at [facility] N/A: Spine Medtronic Inc [id number] / / Screw 3.5mm 20mm Ma Spne Bone Implanted:Qty : 5 on 06/11/2023 by Branden Johnson MD at [facility] N/A: Spine Medtronic Inc [id number] / / Screw 3.5mm 22mm Ma Spne Bone Implanted:Qty : 2 on 06/11/2023 by Branden Johnson MD at [facility] N/A: Spine Medtronic Inc [id number] / / Screw 3.5mm 24mm Ma Spne Bone Implanted:Qty : 1 on 06/11/2023 by Branden Johnson MD at [facility] N/A: Spine Medtronic Inc [id number] / / Screw Set M6 Spne Oc Upr Thor Infnt Implanted:Qty : 12 on 06/11/2023 by Branden Johnson MD at [facility] N/A: Spine Medtronic Sofamor Danek Spine [id number] / / Yoshi Spnl 80mm 3.5mm Pcut Implanted:Qty : 2 on 06/11/2023 by Branden Johnson MD at [facility] N/A: Spine Med[employer]onic Inc [id number] / / Description:* Graft Bone Grftn Dbm Aspt 5x2.5cm Post - [id number] Implanted:Qty : 1 on 06/11/2023 by Branden Johnson MD at [facility] N/A: Spine Medtronic Inc 05/04/2026 [id number] / [id number] / Seal Dural Auto Spr Ext Tip 5ml Implanted:Qty : 1 on 12/03/2023 by Branden Johnson MD at [facility] N/A: Spine Lumbar Inna Craniomaxillofacial 07/01/2025 [id number]-109 / / [id number] Graft Tissue Drgn + Bvn Clgn Mtrx 2x2in Implanted:Qty : 1 on 12/03/2023 by Branden Johnson MD at [facility] N/A: Spine Lumbar Integra Neurosciences 09/29/2026 [id number] / / [id number] Explanted Type Area Volumetric Weigher Device Identifier Shelf Expiration Date Model / Serial / Lot Seal Dural Auto Spr Ext Tip 5ml Explanted:Qty: 1 on 12/03/2023 at [facility] Inna Craniomaxillofacial 07/01/2025 [id number] / / [id number] Description:user error Procedures Procedure Name Priority Date/Time Associated Diagnosis Comments BASIC METABOLIC PANEL (CALCIUM TOTAL) Routine 12/16/2023 3:59 AM CDT from Last 3 Months or Most Recently Relevant to Health Maintenance Results * (ABNORMAL) BASIC METABOLIC PANEL (CALCIUM TOTAL) (12/16/2023 3:59 AM CDT) [facility] Glucose 94 70 - 105 mg/dL 12/16/2023 11:33 AM CDT [facility] Sodium 137 136 - 145 mmol/L 12/16/2023 11:33 AM CDT [facility] Potassium 5.9(H) 3.5 - 5.1 mmol/L 12/16/2023 11:33 AM CDT [facility] Chloride 106 98 - 107 mmol/L 12/16/2023 11:33 AM CDT [facility] CO2 22 22 - 29 mmol/L 12/16/2023 11:33 AM CDT [facility] Calcium 9.5 8.4 - 10.4 mg/dL 12/16/2023 11:33 AM CDT [facility] Anion Gap 9 6 - 16 mmol/L 12/16/2023 11:33 AM CDT [facility] BUN 17 5.3 - 18.7 mg/dL 12/16/2023 11:33 AM CDT [facility] Creatinine 0.75 0.57 - 1.11 mg/dL 12/16/2023 11:33 AM CDT [facility] eGFR by CKD-EPI >90 >=90 mL/min/1.7 3 m2 12/16/2023 11:33 AM CDT [facility] Blood BLOOD SPECIMEN / Unknown 12/16/2023 3:59 AM CDT 12/16/2023 10:36 AM CDT Alexandra Garcia MD LAB - CHEMISTRY ORDERABLES Fin al Result [facility] [address] [place] [address] from Last 3 Months or Most Recently Relevant to Health Maintenance Insurance [facility] Advance Directives Documents on File Type Date 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
--- OUTSIDE RECORDS SUMMARY | 2025-07-09 01:32 | XMS_ITS | Clinical Summary ---
Author Organization [facility] Address [address] [place] [address] Care Team Providers Care Vendor Manager Name Role Phone Unavailable Primary Care Provider [...] Tobacco: Never Tobacco Cessation:Counseling Given: Not Answered [facility] Utilities Answer Date Recorded In the past 12 months has [facility] electric, gas, oil, or water company threatened to shut off services in your home? No 12/09/2023 Social Connection and Isolation Panel Answer Date Recorded In a typical week, how many times do you talk on the phone with family, friends, or neighbors? More than three times a week 12/09/2023 How often do you get togethe r with friends or relatives? More than three times a week 12/09/2023 How often do you attend chur ch or hindu services? More than 4 times per year 12/09/2023 Do you belong to any clubs o r organizations such as worship groups, unions, fraternal or athletic groups, or [...] and heating? Not hard at all 12/09/2023 [facility]at ional Health - Occupational Stress [...]
[2025-07-09 08:24] LABS: Hematocrit 38.8 % (37.0-47.0); Hemoglobin 12.7 g/dL (12.0-15.0); Immature Granulocyte Percent A 0.4 % (0-0.5); Lymphocytes Absolute Auto 1.58 K/mm3 (0.9-3.2); Mean Corpuscular HGB Conc 32.7 g/dl (32-36); Mean Corpuscular Hemoglobin 29.5 pg (26-34); Mean Corpuscular Volume 90.0 fl (80-100); Nucleated Red Blood Cells Absolute Auto 0.000 K/mm3 (0.0-0.012); Nucleated Red Blood Cells Perc 0.0 % (0.0-0.2); Platelet Count Result 323 k/mm3 (150-375); Red Blood Count 4.31 M/mm3 (4.2-5.4); White Blood Count 5.7 K/mm3 (4.5-10.0)
--- NOTE | 2025-07-09 08:34 | WPDHPUPDATE1 ---
History and Physical Update Update Date/Time: 07/09/25 08:34 History and Physical has been reviewed, including an updated exam of the patient. There are NO changes in the patient's condition. Risks, benefits, and alternatives have been discussed and questions answered. Patient agrees to proceed with procedure.
--- NOTE | 2025-07-09 08:34 | WPDMODSED ---
Moderate Sedation Note-Pt Data Patient Data Allergies Allergy/AdvReac Type Severity Reaction Status Date / Time No Known Allergies Allergy Unknown Verified 07/06/25 12:20 Home Medications ?Medication ?Instructions ?Recorded ?Confirmed ?Type oxycodone-acetaminophen 5 mg-325 1 tablet PO Q6H PRN Pain, Moderate 09/01/23 07/06/25 History mg tablet baclofen 10 mg tablet 10 mg PO TID 04/27/24 07/06/25 History bupropion HCl 150 mg 24 hr tablet, 150 mg PO DAILY 05/21/25 07/09/25 History extended release duloxetine 60 mg capsule,delayed 60 mg PO DAILY 05/21/25 07/09/25 History release aspirin 81 mg tablet 81 mg PO DAILY 06/21/25 07/09/25 History pregabalin 200 mg capsule 200 mg PO BID 06/21/25 07/09/25 History Sedation/Anesthesia: No previous sedation/anesthesia problems (including family history). PMFSH Past Medical History Medical History Nausea & vomiting Surgical History Surgical History H/O wrist surgery History of bilateral tubal ligation No significant past surgical history Family History Family History Father Hyperlipidemia Hypertension Sibling Hypertension Social History Social History Smoking packs per day: 1 Smoking cigarettes per day: 20.0 Smoking status: Never smoker Tobacco type: cigarettes Second hand tobacco smoke exposure: No Alcohol intake: never Alcohol use details: 2 glasses of wine monthly Substance use: current Substance use type: marijuana Lack of Transportation: No Lack of Food: Sometimes True Current Housing: I Have Housing Concerned About Future Housing: No Difficulty Paying Gas/Electric Bills: No Difficulty Paying for Meds: No Currently Unemployed: YES Education: High School Diploma/GED Difficulty w/ Childcare or Family Care: No Living arrangements: with family Spiritual care concerns: No Mod Sed Physical Exam Physical Exam Pre Procedural Exam: Normal: Lungs, Heart Size, Heart Rate and Heart Rhythm Hours since solid foods: 12 Hours since liquid intake: 12 Mallampati Classification: class II Internal Medicine - PN: Obj Da Vital Signs Vital Signs: Vital Signs - 24 hr 07/09/25 08:12 Temperature 36.6 C Pulse Rate 83 Respiratory Rate 14 Blood Pressure 151/83 H Pulse Oximetry 96 Oxygen Delivery Room Air Labs 07/09/25 08:08 07/09/25 08:08 Labs: Laboratory Results - last 24 hr 07/09/25 08:08 WBC 5.7 RBC 4.31 Hgb 12.7 Hct 38.8 MCV 90.0 MCH 29.5 MCHC 32.7 RDW 12.6 Plt Count 323 MPV 10.0 Immature Gran % (Auto) 0.4 Neut % (Auto) 61.5 Lymph % (Auto) 27.7 Door % (Auto) 8.1 Eos % (Auto) 1.6 Baso % (Auto) 0.7 Lymph # (Auto) 1.58 Door # (Auto) 0.5 Eos # (Auto) 0.1 Baso # (Auto) 0.0 Abs Immat Gran (auto) 0.02 Absolute Neuts (auto) 3.5 Absolute Nucleated RBC 0.000 Nucleated RBC % 0.0 ASA Classification/Sedation ASA Classification/Sedation ASA Class: III Emergent: No Risks: Risks, benefits and alternatives explained and patient/family accepted plan for sedation. Patient re-evaluated immediately prior to sedation.
[2025-07-09 08:48] LABS: Anion Gap 6 mmol/L (4-12); Blood Urea Nitrogen 13 mg/dL (7-17); Calcium 9.2 mg/dL (8.4-10.2); Carbon Dioxide 25 mmol/L (22-30); Chloride 106 mmol/L (98-107); Estimated CRCL calculation 63 ml/min; Estimated Glomerular Filt Rate > 60; Glucose 96 mg/dL (65-110); Potassium 4.1 mmol/L (3.4-5.0); Sodium 137 mmol/L (137-145)
--- NOTE | 2025-07-09 10:10 | WPDCARDPROC ---
Cardiac Cath Procedure Note Date of procedure:: 07/09/25 Performing physician:: CATHETERIZATION LABORATORY REPORT Procedure Date: 07/09/2025 Referring Physician: Dr. Zhou Anesthesia: Versed and Fentanyl were ordered and given in my presence at 0956, procedure ended at 1007. Supervision of nurse, Kimberly Green monitored moderate sedation with 2mg Versed and 100mcg Fentanyl was provided for 11 minutes. Pre-op Diagnosis: abnormal stress test Post-op Diagnosis: abnormal stress test Procedure(s): Left heart catheterization with coronary angiography Access Site: Right radial artery Brief History and Clinical Indications: All risks, benefits and alternatives to left heart catheterization with or without percutaneous coronary intervention was discussed at length with the patient. Risk of complications including but not limited to bleeding, infection, arrhythmia, stroke, worsening kidney function, blood loss, groin hematoma, limb loss, emergency coronary artery bypass grafting, and even were discussed with the patient and all questions were answered. The patient understood and wished to proceed. Time out called, patient name, date of , medical record number, allergies, procedure performed, identify Provider Relations Representative, patient and staff member concurred with accurate data, procedure carried on. Findings: LEFT HEART CATHETERIZATION FINDINGS: 1. Left main: The left main coronary artery is widely patent without any significant obstructive disease. 2. Left anterior descending: The LAD and the diagonal branches are angiographically free of stenosis. 3. Left circumflex: The left circumflex artery and the main marginal branches are angiographically free of stenosis. 4. Right coronary artery: The RCA is a large dominant vessel that is angiographically free of stenosis. 5. Left ventricle: A. End-diastolic pressure 18 mmHg. B. LV gram deferred. C. No significant gradient across aortic valve on catheter pullback. 6. Opening AO pressure 112/76 and closing AO pressure 114/57 Description of Procedure: Informed consent signed and placed in the chart. Patient transferred to laborer plumbing room. Prepped and draped in usual sterile fashion. 2% lidocaine injected subcutaneously in right wrist area. 22-gauge venipuncture catheter used to access the right radial artery with the Seldinger technique under ultrasound guidance. 6-FR slender sheath placed in right radial artery. Nitroglycerin 200mcg, Verapamil 2.5mg, and Heparin 5000U was given intraarterial through the sheath. J wire advanced under fluoroscopy. 5F Ultra diagnostic catheter was used to cross the aortic valve for LVEDP and aortic valve gradients. After pull back, it was used to engage the right coronary artery and left main coronary artery. Multiple orthogonal angiogram obtained and reviewed. Hemostasis was achieved by application of TR band. Assessment: Normal coronary arteries. Post Operative Condition: Stable No significant blood loss Disposition: Home Plan: The patient will be monitored in the recovery area. The above findings were discussed with the referring physician. Osiel Ritchie Interventional Cardiology
[2025-07-09] MEDS: SODIUM CHLORIDE 0.9% IV 1,000 ML 125 ML IV CONT (10:38)
== END 2025-07-09 14:15 | disposition home or self-care (01) ==
PROVIDERS: PCP Internal Medicine; Visit Provider Internal Medicine
PROC: 4A023N7 Measurement of Cardiac Sampling and Pressure, Left Heart, Percutaneous Approach (ICD-10-PCS; CPT 93452; principal; 2025-07-09 10:00)
DX: R94.39 Abnormal result of other cardiovascular function study (principal)
CPT/HCPCS: 36415; 80048; 85025; 93458; C1769; C1887; C1894; J1644; J2003; J2250; J2305; J3010; J7030; J7040